=== PATIENT | female | born 1980 | race Caucasian/White ===

== ENCOUNTER → 2016-11-16 | Outpatient (CLI) | payer MEDICAID ==
--- NOTE | 2016-11-18 08:02 | XCELERA REPORT ---
[address] [address] Lower Extremity Arterial Evaluation Name: THOM TOVAR Age: 36 yrs Gender: Female : 1980 Patient Status: Outpatient Patient Location: Study Date: 11/16/2016 12:47 PM Procedure: A color flow and duplex scan of the lower extremity arteries was performed bilaterally with velocity and waveform anaylsis. Ankle brachial indicies performed. Reason For Study: PVD Ordering Physician: TERRY PHILLIPS Performed By: Xochilt Fisher Measurements and Calculations Right Left LEAD MACHINIST PSV 151.9 144.6 cm/sec Prox PFA PSV -100.7 -80.3 cm/sec Prox SFA PSV 94.8 -74.6 cm/sec Mid SFA PSV -120.2 -95.8 cm/sec Dist SFA PSV -109.7 -90.8 cm/sec Prox Pop A PSV 62.5 57.6 cm/sec Dist DOMINIC PSV 47.2 65.3 cm/sec Dist CHIEF INNOVATION OFFICER PSV 90.8 81.6 cm/sec Venkat Pedis PSV 41.8 39.7 cm/sec Right Side Arterial Evaluation Normal velocity, waveform and triphasic flow are present, from the Common Femoral artery to the infrageniculate vessels. The ankle-brachial index is 1.1. 0 % stenosis noted . Left Side Arterial Evaluation Normal velocity, waveform and triphasic flow are present, from the Common Femoral artery to the infrageniculate vessels. The ankle-brachial index is 1.07. 0 % stenosis noted . Interpretation Summary No hemodynamically significant lesions in the bilateral lower extremities, on duplex imaging, at rest. : TERRY PHILLIPS > Terry Phillips
== END ==
LOC: SP 12:43
PROVIDERS: ATTEND Surgery
DX: I73.9 Peripheral vascular disease, unspecified (principal)
CPT/HCPCS: 93925

== ENCOUNTER 2016-12-04 10:16 | Emergency (ER) | payer SELFPAY ==
[2016-12-04 10:25] VITALS: BP 114/63
--- NOTE | 2016-12-04 10:46 | ER Document Report ---
HPI - HPI Patient complains to provider of: sore throat and painful urination Pain Level: 3 Context: Patient is a 36-year-old female presents emergency Department complaining of a sore throat. Patient states that she has had strep exposure at home from 3 of her 6 kids. She states that it started initially as a burning scratchy feeling but now hurts with swallowing. Tolerating her own secretions. Tolerating by mouth without any difficulty. she admits to subjective fevers at home. Otherwise she denies any muffled speech, drooling, felt odor or drainage from her mouth. Patient also presents today complaining of painful urination. Patient states she has had burning when she urinates, urinary frequency, urgency for the past 4 days. Patient states that she had a history of UTI couple years ago but doesn 't get them frequently. Denies any flank pain, abdominal pain, nausea or vomiting. - REPRODUCTIVE Reproductive: DENIES: : - DERM Skin Color: Normal Past Medical History - Social History Smoking Status: Unknown if Ever Smoked Family History: Reviewed & Not Pertinent Patient has suicidal ideation: No Patient has homicidal ideation: No Pulmonary Medical History: Reports: Hx Asthma, Hx Bronchitis Endocrine Medical History: Reports: Hx Diabetes Mellitus Type 2 - Gestional. Denies: Hx Hyperthyroidism, Hx Hypothyroidism Renal/ Medical History: Denies: Hx Ovarian Cysts, Hx Peritoneal Dialysis, Hx Pelvic Inflammatory Disease Malignancy Medical History: Denies: Hx Breast Cancer, Hx Cervical Cancer, Hx Ovarian Cancer GI Medical History: Reports: Hx Gastroesophageal Reflux Disease. Denies: Hx Hiatal Hernia, Hx Ulcer Psychiatric Medical History: Reports: Hx Bipolar Disorder Denies: Hx Depression, Hx Post Traumatic Stress Disorder, Hx Schizophrenia Infectious Medical History: Denies: Hx HIV Past Surgical History: Reports: Hx Section, Hx Tubal Ligation - Immunizations Hx Diphtheria, Pertussis, Tetanus Vaccination: Yes - received during Vertical Provider Document - CONSTITUTIONAL Agree With Documented VS: Yes Exam Limitations: No Limitations General Appearance: WD/WN, No Apparent Distress - INFECTION CONTROL TRAVEL OUTSIDE OF THE [place] IN LAST 30 DAYS: No - HEENT HEENT: Atraumatic, Normocephalic, PERRLA, Pharyngeal Tenderness, Pharyngeal Erythema. negative: Pharyngeal Exudate, Tympanic Membrane Red, Tympanic Membrane Bulging Notes: No evidence of retropharyngeal or peritonsillar abscess. No evidence of respiratory distress, airway compromise - NECK Neck: Normal Inspection. negative: Lymphadenopathy-Left, Lymphadenopathy-Right - RESPIRATORY Respiratory: Breath Sounds Normal, No Respiratory Distress, Chest Non-Tender. negative: Rales, Rhonchi, Wheezing O2 Sat by Pulse Oximetry: 97 - CARDIOVASCULAR Cardiovascular: Regular Rate, Regular Rhythm, No Murmur. negative: Tachycardia Pulses: Normal: Radial - GI/ABDOMEN Gastrointestinal: Abdomen Soft, Abdomen Non-Tender, No Organomegaly, Normal Bowel Sounds - MUSCULOSKELETAL/EXTREMETIES Musculoskeletal/Extremeties: MAEW, FROM, Non-Tender, No Edema - NEURO Level of Consciousness: Awake, Alert, Appropriate Motor/Sensory: No Motor Deficit, No Sensory Deficit - DERM Integumentary: Warm, Dry, No Rash Course - Re-evaluation Re-evalutation: 12/04/16 11:06 Patient's 36-year-old female presents emergency Department with sore throat urinary complaint. Strep is negative. UA is clean. Given patient's complaint sent for culture. Discharged home and can follow-up with primary care as needed. - Vital Signs Vital signs: Temp Pulse Resp BP Pulse Ox 98.4 F 72 16 114/63 97 12/04/16 10:23 12/04/16 10:23 12/04/16 10:23 12/04/16 10:23 12/04/16 10:23 Discharge - Discharge Clinical Impression: Sore throat, Urinary frequency Condition: Good Disposition: HOME, SELF-CARE Instructions: Sore Throat ([facility]) Referrals: RAN MAGANA PA-C [Primary Care Provider] - Follow up as needed
[2016-12-04 11:14] LABS: AMORPHOUS SEDIMENT,URINE TRACE /HPF; APPEARANCE,URINE TURBID; BILIRUBIN,URINE NEGATIVE (NEGATIVE); GLUCOSE, URINE NEGATIVE (NEGATIVE); KETONES,URINE NEGATIVE (NEGATIVE); LEUKOCYTE ESTERASE,URINE NEGATIVE (NEGATIVE); NITRITE,URINE NEGATIVE (NEGATIVE); PROTEIN,URINE NEGATIVE (NEGATIVE); URINE SPECIFIC GRAVITY 1.011; UROBILINOGEN,URINE NEGATIVE mg/dL (<2.0)
== END 2016-12-04 12:05 | disposition home or self-care (01) ==
LOC: ER 10:16
DX: J02.9 Acute pharyngitis, unspecified (principal); R35.0 Frequency of micturition; R30.9 Painful micturition, unspecified; R50.9 Fever, unspecified
CPT/HCPCS: 81001; 81025; 87070; 87086; 87880; 99283

== ENCOUNTER 2018-10-17 20:44 | Emergency (ER) | payer MEDICAID | END 2018-10-17 21:35 | disposition left against medical advice (07) | LOC: ER 20:44 | DX: Z53.21 Procedure and treatment not carried out due to patient leaving prior to being seen by health care provider (principal); R50.9 Fever, unspecified; R11.10 Vomiting, unspecified; M79.10 Myalgia, unspecified site ==

== ENCOUNTER 2018-12-05 13:08 | Emergency (ER) | payer SELFPAY ==
--- NOTE | 2018-12-05 13:31 | ER Document Report ---
ED Medical Screen (RME) - General Chief Complaint: Vaginal Bleeding Stated Complaint: VAGINAL BLEED Time Seen by Provider: 12/05/18 13:26 Primary Care Provider: RAN MAGANA PA-C [Primary Care Provider] - Follow up as needed TRAVEL OUTSIDE OF THE [place] IN LAST 30 DAYS: No - HPI Notes: 12/05/18 13:30 Patient is a 38-year-old female with a history of mental health disorder who pr esents the emergency department complaining of heavier than normal vaginal bleeding over the past 3 menstrual cycles with "blood clots the size of golf balls." Patient states that she will have her typical cramping associated, but no focal pain. She is otherwise eating and drinking without difficulty. She is urinating normally and having normal bowel movements. Patient also has concern of a bump to her left axilla that she has noticed over the past 6 months without any acute change, redness, or discharge. Denies any headache, fever, neck pain, URI, sore throat, chest pain, palpitations, syncope, cough, shortness of breath, wheeze, dyspnea, abdominal pain, nausea/vomiting/diarrhea, urinary retention, dysuria, hematuria. I have treated and performed a rapid initial assessment of this patient. A comprehensive ED assessment and evaluation of the patient, analysis of test results and completion of medical decision making process will be conducted by additional ED providers. PHYSICAL EXAMINATION: GENERAL: Well-appearing, well-nourished and in no acute distress. A&Ox4. Answers questions appropriately. LUNGS: Breath sounds clear to auscultation bilaterally and equal. No wheezes rales or rhonchi. HEART: Regular rate and rhythm without murmurs, rubs, gallops. ABDOMEN: Soft, nondistended abdomen. No guarding, no rebound. Normal bowel sounds present. No CVA tenderness bilaterally. No focal tenderness Extremities: No cyanosis, clubbing, or edema b/l. NEUROLOGICAL: Normal speech, normal gait. PSYCH: Normal mood, normal affect. - Related Data Allergies/Adverse Reactions: latex [Latex] Allergy (Severe, Verified 12/05/18 13:09) RASH amoxicillin [Amoxicillin] Allergy (Verified 12/05/18 13:09) oxycodone HCl [From Percocet] Allergy (Verified 12/05/18 13:09) Hives Penicillins Allergy (Verified 12/05/18 13:09) Past Medical History Pulmonary Medical History: Reports: Hx Asthma, Hx Bronchitis Endocrine Medical History: Reports: Hx Diabetes Mellitus Type 2 - Gestional. Denies: Hx Hyperthyroidism, Hx Hypothyroidism Renal/ Medical History: Denies: Hx Ovarian Cysts, Hx Peritoneal Dialysis, Hx Pelvic Inflammatory Disease Malignancy Medical History: Denies: Hx Breast Cancer, Hx Cervical Cancer, Hx Ovarian Cancer GI Medical History: Reports: Hx Gastroesophageal Reflux Disease. Denies: Hx Hiatal Hernia, Hx Ulcer Psychiatric Medical History: Reports: Hx Bipolar Disorder Denies: Hx Depression, Hx Post Traumatic Stress Disorder, Hx Schizophrenia Infectious Medical History: Denies: Hx HIV Past Surgical History: Reports: Hx Section, Hx Tubal Ligation - Immunizations Hx Diphtheria, Pertussis, Tetanus Vaccination: Yes - received during Physical Exam - Vital signs Vitals: Temp Pulse Resp BP Pulse Ox 99 F 90 18 129/68 H 97 12/05/18 13:15 12/05/18 13:15 12/05/18 13:15 12/05/18 13:15 12/05/18 13:15 Course - Vital Signs Vital signs: Temp Pulse Resp BP Pulse Ox 99 F 90 18 129/68 H 97 12/05/18 13:15 12/05/18 13:15 12/05/18 13:15 12/05/18 13:15 12/05/18 13:15 Doctor's Discharge - Discharge Referrals: RAN MAGANA PA-C [Primary Care Provider] - Follow up as needed
[2018-12-05 14:03] LABS: ABSOLUTE BASOPHILS # (AUTO) 0.1 10^3/uL (0.0-0.2); ABSOLUTE EOSINOPHILS # (AUTO) 0.1 10^3/uL (0.0-0.6); ABSOLUTE LYMPHOCYTES (AUTO) 2.2 10^3/uL (0.5-4.7); ABSOLUTE MONOCYTES (AUTO) 0.5 10^3/uL (0.1-1.4); ABSOLUTE NEUT (AUTO) 4.5 10^3/uL (1.7-8.2); BASOPHILS % (AUTO) 0.9 % (0-2); EOSINOPHILS % (AUTO) 1.4 % (0-6); HEMATOCRIT 37.7 % (36.0-47.0); HEMOGLOBIN 13.2 g/dL (12.0-15.5); LYMPHOCYTES % (AUTO) 30.5 % (13-45); MEAN CORPUSCULAR HEMOGLOBIN 31.6 pg (27.0-33.4); MEAN CORPUSCULAR HGB CONC 34.9 g/dL (32.0-36.0); MEAN CORPUSCULAR VOLUME 90 fl (80-97); MONOCYTES % (AUTO) 6.5 % (3-13); PLATELET COUNT 276 10^3/uL (150-450); RED BLOOD COUNT 4.17 10^6/uL (3.72-5.28); RED CELL DISTRIBUTION WIDTH 13.2 % (11.5-14.0); SEGMENTED NEUTROPHILS % (AUTO) 60.7 % (42-78); TOTAL CELLS COUNTED % (AUTO) 100 %; WHITE BLOOD COUNT 7.4 10^3/uL (4.0-10.5)
--- NOTE | 2018-12-05 14:13 | ER Document Report ---
ED General - General Chief Complaint: Vaginal Bleeding Stated Complaint: VAGINAL BLEED Time Seen by Provider: 12/05/18 13:26 Primary Care Provider: RAN MAGANA PA-C [Primary Care Provider] - Follow up as needed Mode of Arrival: Ambulatory Information source: Parent TRAVEL OUTSIDE OF THE [place] IN LAST 30 DAYS: No - HPI Patient complains to provider of: Dysfunctional vaginal bleeding, possible abscess left axilla Onset: Other - 3 months Onset/Duration: Gradual Quality of pain: Cramping Severity: Severe Pain Level: 4 Associated symptoms: None Exacerbated by: Denies Relieved by: Denies Similar symptoms previously: No Recently seen / treated by doctor: No Notes: 38-year-old female presenting for abnormal vaginal bleeding during her menstrual cycle over the past 3 months. Having greater than normal amount of cramping. History of tubal ligation in the past. She used to be on Depo- Provera which seemed to control any of this. Has stopped taking it several months ago due to no funding. Does not have any lightheadedness, shortness of breath, dizziness, or near syncope. Denies chest pain. Also complaining of possible abscess in the left armpit which started about 6 months ago and really has not gotten any better by itself. No fevers or chills. - Related Data Allergies/Adverse Reactions: latex [Latex] Allergy (Severe, Verified 12/05/18 13:09) RASH amoxicillin [Amoxicillin] Allergy (Verified 12/05/18 13:09) oxycodone HCl [From Percocet] Allergy (Verified 12/05/18 13:09) Hives Penicillins Allergy (Verified 12/05/18 13:09) Past Medical History - General Information source: Patient - Social History Smoking Status: Current Every Day Smoker Family History: Reviewed & Not Pertinent Patient has suicidal ideation: No Patient has homicidal ideation: No Pulmonary Medical History: Reports: Hx Asthma, Hx Bronchitis Endocrine Medical History: Reports: Hx Diabetes Mellitus Type 2 - Gestional. Denies: Hx Hyperthyroidism, Hx Hypothyroidism Renal/ Medical History: Denies: Hx Ovarian Cysts, Hx Peritoneal Dialysis, Hx Pelvic Inflammatory Disease Malignancy Medical History: Denies: Hx Breast Cancer, Hx Cervical Cancer, Hx Ovarian Cancer GI Medical History: Reports: Hx Gastroesophageal Reflux Disease. Denies: Hx Hiatal Hernia, Hx Ulcer Psychiatric Medical History: Reports: Hx Bipolar Disorder Denies: Hx Depression, Hx Post Traumatic Stress Disorder, Hx Schizophrenia Infectious Medical History: Denies: Hx HIV Past Surgical History: Reports: Hx Section, Hx Tubal Ligation - Immunizations Hx Diphtheria, Pertussis, Tetanus Vaccination: Yes - received during Review of Systems - Review of Systems Notes: Constitutional: No fevers. No chills. EENT: No eye redness. No eye pain. No ear pain. No sore throat. Cardiovascular: No chest pain. No palpitations. Respiratory: No cough. No shortness of breath. No respiratory distress. Gastrointestinal: No abdominal pain. No nausea, vomiting, or diarrhea. Genitourinary: Atraumatic. Positive for heavy vaginal bleeding, positive for heavy pelvic cramping Musculoskeletal: Atraumatic. No swelling. No deformities. Skin: Positive for left axillary lump Lymphatic: No swollen lymph nodes. Neurologic: No headache. No syncope. Psychiatric: No suicidal or homicidal ideation. Physical Exam - Vital signs Vitals: Temp Pulse Resp BP Pulse Ox 99 F 90 18 129/68 H 97 12/05/18 13:15 12/05/18 13:15 12/05/18 13:15 12/05/18 13:15 12/05/18 13:15 - Notes Notes: General: Well-developed, well-nourished. In no acute distress. Non-toxic appearing. Cardiac: Well-perfused. Regular rate and rhythm. No murmurs, rubs, or gallops. Pulmonary: No respiratory distress. No cyanosis. Bilateral lung fiels are clear to auscultation. Abdominal: Non-distended. Non-rigid. Bowels sounds are present in all four quadrants. No guarding or rebound. HEENT: Head is atraumatic. Conjunctivae not reddened. No tearing. PERRL. EOMI. Orbits atraumatic. No periorbital swelling or erythema. Oropharynx is without e rythema, swelling, or exudates. Neck: Supple. No adenopathy. No meningismus. Dermatologic: Left axilla which is shaven. There is a small amount of induration in the upper medial aspect of the left axilla. Some associated redness and tenderness. The induration is not well delineated. This does not feel like a subcutaneous lymph node. Chest: Atraumatic. No chest wall tenderness to palpation. Musculoskeletal: Moves all extremities well. No range of motion deficits. no muscular or joint tenderness. No paraspinal muscle tenderness. no midline spinal tenderness or step-off. Genitourinary: Examination deferred Neurologic: No gross neurologic deficits. Psychiatric: Normal mood. Course - Re-evaluation Re-evalutation: 12/05/18 14:13 Agree with orders placed by the provider in triage. I suspect that the dysfunctional uterine bleeding could be a result of coming off of Depo-Provera. This will check a hemoglobin to make sure that she has a stable hemoglobin and hematocrit. Also check a ultrasound to make sure that there is not an anatomical reason for her to be bleeding like this. The axilla feels like a folliculitis that starting to get a little bit cellulitic. I do not think this is an axillary adenopathy. 12/05/18 15:32 Patient's lab work is back. H&H is stable. Pelvic ultrasound does not show any anatomical anomalies explaining the bleeding. I still think this is probably related to stopping Depo-Medrol. Indicated all of this to her and will refer her to gynecology clinic. Patient has large amount of leukocytes and trace bacteria in her urine specimen. She said she is having some frequency of urination but no dysuria. I will go ahead and put her on Bactrim which will cover both for the infected hair follicles in the left axilla as well as the UTI. I will refer her to [facility] preparation room worker but will also give her [facility] and they may be willing to do her Depo-Provera as well. - Vital Signs Vital signs: Temp Pulse Resp BP Pulse Ox 99 F 90 18 129/68 H 97 12/05/18 13:15 12/05/18 13:15 12/05/18 13:15 12/05/18 13:15 12/05/18 13:15 - Laboratory Result Diagrams: 12/05/18 13:50 Laboratory results interpreted by me: 12/05/18 13:50 Urine Protein 100 H Urine Blood LARGE H Ur Leukocyte Esterase LARGE H Discharge - Discharge Clinical Impression: Abnormal vaginal bleeding, Folliculitis UTI (urinary tract infection) Qualifiers: Urinary tract infection type: site unspecified Hematuria presence: without hematuria Qualified Code(s): N39.0 - Urinary tract infection, site not specified Condition: Good Instructions: Trimethoprim-Sulfa ([facility]), Folliculitis ([facility]), Urinary Tract Infection ([facility]) Additional Instructions: If your symptoms seem to be getting worse instead of better and you have not seen 1 of the referral doctors, you can return to the emergency department to be reassessed. Sure to take all prescribed medication for full duration. [facility] a local [facility] for people who typically do not have traditional health insurance plans. They may be able to assist you with getting her Depo-Provera shots. They can also recheck your urine in a couple of days to make sure that your infection is clearing up. They may also be able to help take care of the infection under left armpit. Prescriptions: Sulfamethoxazole/Trimethoprim [Bactrim Ds Tablet] 1 each PO BID #20 tablet Referrals: RAN MAGANA PA-C [Primary Care Provider] - Follow up as needed [facility] [Provider Group] - Follow up as needed AVEL NATION MD [ACTIVE STAFF] - Follow up as needed Print Language: Tajik
[2018-12-05 14:29] LABS: APPEARANCE,URINE CLOUDY; BILIRUBIN,URINE NEGATIVE (NEGATIVE); COLOR,URINE RED; GLUCOSE, URINE NEGATIVE (NEGATIVE); KETONES,URINE NEGATIVE (NEGATIVE); LEUKOCYTE ESTERASE,URINE LARGE (NEGATIVE); NITRITE,URINE NEGATIVE (NEGATIVE); PROTEIN,URINE 100 mg/dL (NEGATIVE); URINE SPECIFIC GRAVITY 1.009; UROBILINOGEN,URINE NEGATIVE mg/dL (<2.0)
--- NOTE | 2018-12-05 15:04 | RADIOLOGY REPORT (SQ) ---
EXAM DESCRIPTION: U/S NON OB PEL TV W/DOPPLER COMPLETED DATE/TIME: 12/05/2018 2:45 pm REASON FOR STUDY: heavy bleeding COMPARISON: None. TECHNIQUE: Dynamic and static grayscale images acquired of the pelvis via transvaginal approach and recorded on PACS. Additional selected color Doppler and spectral images recorded. LIMITATIONS: None. FINDINGS: UTERUS: Unremarkable in contour measuring 8.5 x 5.2 x 6.3 cm. Heterogeneous echotexture w ithout discrete lesion. ENDOMETRIAL STRIPE: No focal or generalized thickening. No mass. Endometrial stripe measures 4 mm. CERVIX: Single nabothian cyst. Cervix measures 3.5 cm. RIGHT OVARY AND DOPPLER: Right ovary measures 2.0 x 1.8 x 3.5 cm. Doppler flow demonstrates normal a rterial and venous waveforms. LEFT OVARY AND DOPPLER: Left ovary measures 3.1 x 1.5 x 1.7 cm. Doppler flow demonstrates normal mandie ous and arterial waveforms. FREE FLUID: None noted. OTHER: No other significant finding. IMPRESSION: Unremarkable ovaries bilaterally. Heterogeneous uterine echotexture without discrete fibroids appreciated. TECHNICAL DOCUMENTATION: JOB ID: [id number] [place]- All Rights Reserved Rev Reading location - IP/workstation name: [email or web address]
[2018-12-05 16:20] VITALS: BP 127/69
== END 2018-12-05 16:19 | disposition home or self-care (01) ==
LOC: ER 13:08
DX: N93.8 Other specified abnormal uterine and vaginal bleeding (principal); N39.0 Urinary tract infection, site not specified; L73.9 Follicular disorder, unspecified; R25.2 Cramp and spasm; F17.200 Nicotine dependence, unspecified, uncomplicated; Z98.51 Tubal ligation status; J45.909 Unspecified asthma, uncomplicated; Z91.040 Latex allergy status; Z88.0 Allergy status to penicillin; Z88.5 Allergy status to narcotic agent
CPT/HCPCS: 36415; 76830; 81001; 81025; 85025; 87086; 93976; 99284

== ENCOUNTER 2019-03-26 13:04 | Emergency (ER) | payer SELFPAY ==
--- NOTE | 2019-03-26 13:53 | ER Document Report ---
ED ENT - General Chief Complaint: Sore Throat Stated Complaint: THROAT PAIN Time Seen by Provider: 03/26/19 13:48 Primary Care Provider: RAN MAGANA PA-C [Primary Care Provider] - Follow up in 3-5 days Mode of Arrival: Ambulatory Information source: Patient Notes: 38-year-old female presented to ED for complaint of sore throat x2 days. She states she has been taken Tylenol and Motrin with no relief. She states it started on her right side and now her whole throat hurts. Patient is alert oriented respirations regular and unlabored speaking in full sentences walks with a even steady gait. She states she is not having any difficulty swallowing. TRAVEL OUTSIDE OF THE [place] IN LAST 30 DAYS: No - HPI Patient complains to provider of: Throat problem Onset: Other - 2 days Onset/Duration: Gradual Quality of pain: Sharp Severity: Moderate Pain Level: 4 Context: Recent Illness Location of pain: Throat Associated symptoms: Sore throat Similar symptoms previously: Yes Recently seen / treated by doctor: No - Related Data Allergies/Adverse Reactions: latex [Latex] Allergy (Severe, Verified 03/26/19 13:19) RASH amoxicillin [Amoxicillin] Allergy (Verified 03/26/19 13:19) oxycodone HCl [From Percocet] Allergy (Verified 03/26/19 13:19) Hives Penicillins Allergy (Verified 03/26/19 13:19) Past Medical History - General Information source: Patient - Social History Smoking Status: Current Every Day Smoker Cigarette use (# per day): Yes - 5 cigarettes a day Chew tobacco use (# tins/day): No Smoking Education Provided: Yes - 4 minutes Frequency of alcohol use: None Drug Abuse: Marijuana Occupation: Paperwork Lives with: Family Family History: Reviewed & Not Pertinent Patient has suicidal ideation: No Patient has homicidal ideation: No - Past Medical History Cardiac Medical History: Reports: None Pulmonary Medical History: Reports: Hx Asthma, Hx Bronchitis EENT Medical History: Reports: None Neurological Medical History: Reports: None Endocrine Medical History: Reports: Hx Diabetes Mellitus Type 2 - Gestional Renal/ Medical History: Reports: None Malignancy Medical History: Reports: None GI Medical History: Reports: Hx Gastroesophageal Reflux Disease Musculoskeletal Medical History: Reports None Skin Medical History: Reports None Psychiatric Medical History: Reports: Hx Anxiety, Hx Bipolar Disorder, Hx Post Traumatic Stress Disorder Traumatic Medical History: Reports: None Infectious Medical History: Reports: None Past Surgical History: Reports: Hx Section, Hx Tubal Ligation - Immunizations Hx Diphtheria, Pertussis, Tetanus Vaccination: Yes - received during Review of Systems - Review of Systems Constitutional: No symptoms reported EENT: Throat pain Cardiovascular: No symptoms reported Respiratory: No symptoms reported Gastrointestinal: No symptoms reported Genitourinary: No symptoms reported Female Genitourinary: No symptoms reported Musculoskeletal: No symptoms reported Skin: No symptoms reported Hematologic/Lymphatic: No symptoms reported Neurological/Psychological: No symptoms reported -: Yes All other systems reviewed and negative Physical Exam - Vital signs Vitals: Temp Pulse Resp BP Pulse Ox 98.4 F 93 17 147/77 H 97 03/26/19 13:25 03/26/19 13:25 03/26/19 13:25 03/26/19 13:25 03/26/19 13:25 Interpretation: Normal - General General appearance: Appears well, Alert - HEENT Head: Normocephalic, Atraumatic Eyes: Normal Pupils: PERRL Ears: Normal External canal: Normal Sinus: Normal Nasal: Purulent discharge, Swelling Mouth/Lips: Normal, Other Pharynx: Erythema, Post nasal drainage. No: Exudate, Peritonsillar abscess, Retropharyngeal abscess, Tonsillar hypertrophy, Uvular edema, Potential airway comprom. Neck: Normal - Respiratory Respiratory status: No respiratory distress Chest status: Nontender Breath sounds: Normal Chest palpation: Normal - Cardiovascular Rhythm: Regular Heart sounds: Normal auscultation Murmur: No - Abdominal Inspection: Normal Distension: No distension Bowel sounds: Normal Tenderness: Nontender Organomegaly: No organomegaly - Back Back: Normal, Nontender - Extremities General upper extremity: Normal inspection, Nontender, Normal color, Normal ROM, Normal temperature General lower extremity: Normal inspection, Nontender, Normal color, Normal ROM, Normal temperature, Normal weight bearing. No: Stefano's sign - Neurological Neuro grossly intact: Yes Cognition: Normal Orientation: AAOx4 Mandy Coma Scale Eye Opening: Spontaneous Mandy Coma Scale Verbal: Oriented Mandy Coma Scale Motor: Obeys Commands Mandy Coma Scale Total: 15 Speech: Normal Motor strength normal: LUE, RUE, LLE, RLE Sensory: Normal - Psychological Associated symptoms: Normal affect, Normal mood - Skin Skin Temperature: Warm Skin Moisture: Dry Skin Color: Normal Course - Re-evaluation Re-evalutation: 03/26/19 21:23 After performing a Medical Screening Examination, I estimate there is LOW risk for ACUTE CORONARY SYNDROME, RESPIRATORY FAILURE, SEPSIS OR MENINGITIS, thus I consider the discharge disposition reasonable. I have reevaluated this patient multiple times and no significant life threatening changes are noted. The patient and I have discussed the diagnosis and risks, and we agree with discharging home with close follow-up. We also discussed returning to the Emergency Department immediately if new or worsening symptoms occur. We have discussed the symptoms which are most concerning (e.g., changing or worsening pain, trouble swallowing or breathing, neck stiffness, fever) that necessitate immediate return. - Vital Signs Vital signs: Temp Pulse Resp BP Pulse Ox 98.9 F 78 18 126/72 H 99 03/26/19 16:02 03/26/19 16:02 03/26/19 16:02 03/26/19 16:02 03/26/19 16:02 Discharge - Discharge Clinical Impression: Sore throat (viral) URI (upper respiratory infection) Qualifiers: URI type: unspecified viral URI Qualified Code(s): J06.9 - Acute upper respiratory infection, unspecified Condition: Stable Disposition: HOME, SELF-CARE Additional Instructions: UPPER RESPIRATORY ILLNESS: You have a viral infection of the respiratory passages -- a "cold." This common infection causes nasal congestion, drainage, and often sore throat and cough. It is highly contagious. The disease usually lasts about 10 to 14 days. There is no "cure" for the viral infection -- it must run its course. If there is a complication, such as bacterial infection in the nose, sinuses, middle ear, or bronchial tubes, antibiotics may be required. The antibiotics won't affect the virus. Drink plenty of fluids. A humidifier may help. An expectorant medication or decongestant may make you more comfortable. Use acetaminophen or ibuprofen for fever or aches. See the doctor if fever persists over two days, if there is any significant worsening of your symptoms, or if you simply fail to improve as expected. SORE THROAT: Sore throats may be caused by viruses, bacteria, or fungi. Most are due to a virus, and must get better on their own. Bacterial sore throats, particularly those due to "strep," need treatment with antibiotics. If an antibiotic is prescribed, be sure to take the medication for a full 10 days. Failure to take the antibiotic can result in complications such as rheumatic fever. Sometimes, an injection of antibiotics is given instead of pills or liquid. This single "shot" is equal in effectiveness to the oral medication. To relieve symptoms, take acetaminophen for pain. Sip clear liquids frequently, or eat popsicles or ice chips. Anesthetic sprays or lozenges may help. Make sure the air in the room is not too dry. Avoid using decongestants or antihistamines. Call the doctor if there is no improvement in two days, or if you have difficulty breathing, increasing throat pain, high fever, rash, or frequent vomiting. USE OF ACETAMINOPHEN (Tylenol): Acetaminophen may be taken for pain relief or fever control. It's much safer than aspirin, offering a wider range of "safe" dosages. It is safe during . Some brand names are Tylenol, Panadol, Datril, Anacin 3, Tempra, and Liquiprin. Acetaminophen can be repeated every four hours. The following are maximum recommended dosages: >89 pounds or adults 650 mg to 900 mg Acetaminophen can be repeated every four hours. Maximum dose not to exceed 4000 mg a day. SMOKING: If you smoke, you should stop smoking. The tar and chemicals in cigarette smoke are harmful. Smoking has been shown to cause: emphysema chronic bronchitis lung cancer mouth and throat cancer stomach and pancreas cancer premature aging defects In addition, smoking increases ear and lung infections in children of smokers. FOLLOW-UP CARE: If you have been referred to a physician for follow-up care, call the physicians office for an appointment as you were instructed or within the next two days. If you experience worsening or a significant change in your symptoms, notify the physician immediately or return to the Emergency Department at any time for re-evaluation. Forms: Elevated Blood Pressure, Smoking Cessation Education, Return to Work Referrals: RAN MAGANA PA-C [Primary Care Provider] - Follow up in 3-5 days
[2019-03-26 16:03] VITALS: BP 126/72
== END 2019-03-26 16:04 | disposition home or self-care (01) ==
LOC: ER 13:04
DX: J02.9 Acute pharyngitis, unspecified (principal); J06.9 Acute upper respiratory infection, unspecified; F17.210 Nicotine dependence, cigarettes, uncomplicated; Z91.040 Latex allergy status; Z88.0 Allergy status to penicillin; Z88.6 Allergy status to analgesic agent; Z98.51 Tubal ligation status
CPT/HCPCS: 87070; 87880; 99283; 99406

== ENCOUNTER 2019-05-16 19:14 | Emergency (ER) | payer SELFPAY ==
--- NOTE | 2019-05-16 20:07 | ER Document Report ---
ED Medical Screen (RME) - General Chief Complaint: Dizziness Stated Complaint: CHEST PAIN Time Seen by Provider: 05/16/19 20:04 Primary Care Provider: RAN MAGANA PA-C [Primary Care Provider] - Follow up as needed Mode of Arrival: Ambulatory Information source: Patient Notes: 29-year-old female presenting to ED for complaint of various complaints. She states yesterday around noon time she was extremely fatigued diaphoretic shaking she thought that she ate some food she would feel much better but after she ate she was still fatigued and developed a headache. So she thought she was just tired she went home went to bed woke up this morning she was fine by noon she was shaky fatigue and having trouble keeping her eyes open. She states she has been thirsty more often and frequently urinating. Her Accu-Chek is 104 in the pit area. I have greeted and performed a rapid initial assessment of this patient. A comprehensive ED assessment and evaluation of the patient, analysis of test results and completion of medical decision making process will be conducted by an additional ED providers. TRAVEL OUTSIDE OF THE [place] IN LAST 30 DAYS: No - Related Data Allergies/Adverse Reactions: latex [Latex] Allergy (Severe, Verified 03/26/19 13:19) RASH amoxicillin [Amoxicillin] Allergy (Verified 03/26/19 13:19) oxycodone HCl [From Percocet] Allergy (Verified 03/26/19 13:19) Hives Penicillins Allergy (Verified 03/26/19 13:19) Past Medical History Pulmonary Medical History: Reports: Hx Asthma, Hx Bronchitis Endocrine Medical History: Reports: Hx Diabetes Mellitus Type 2 - Gestional. Denies: Hx Hyperthyroidism, Hx Hypothyroidism Renal/ Medical History: Denies: Hx Ovarian Cysts, Hx Peritoneal Dialysis, Hx Pelvic Inflammatory Disease Malignancy Medical History: Denies: Hx Breast Cancer, Hx Cervical Cancer, Hx Ovarian Cancer GI Medical History: Reports: Hx Gastroesophageal Reflux Disease. Denies: Hx Hiatal Hernia, Hx Ulcer Psychiatric Medical History: Reports: Hx Anxiety, Hx Bipolar Disorder, Hx Post Traumatic Stress Disorder Denies: Hx Depression, Hx Schizophrenia Infectious Medical History: Denies: Hx HIV Past Surgical History: Reports: Hx Section, Hx Tubal Ligation - Immunizations Hx Diphtheria, Pertussis, Tetanus Vaccination: Yes - received during Physical Exam - Vital signs Vitals: Temp Pulse Resp BP Pulse Ox 99.0 F 96 18 127/74 H 93 05/16/19 19:32 05/16/19 19:32 05/16/19 19:32 05/16/19 19:32 05/16/19 19:32 Course - Vital Signs Vital signs: Temp Pulse Resp BP Pulse Ox 99.0 F 96 18 127/74 H 93 05/16/19 19:32 05/16/19 19:32 05/16/19 19:32 05/16/19 19:32 05/16/19 19:32 Doctor's Discharge - Discharge Referrals: RAN MAGANA PA-C [Primary Care Provider] - Follow up as needed
[2019-05-16 20:39] LABS: APPEARANCE,URINE SLIGHTLY-CLOUDY; BILIRUBIN,URINE NEGATIVE (NEGATIVE); COLOR,URINE YELLOW; GLUCOSE, URINE NEGATIVE (NEGATIVE); KETONES,URINE NEGATIVE (NEGATIVE); LEUKOCYTE ESTERASE,URINE NEGATIVE (NEGATIVE); NITRITE,URINE NEGATIVE (NEGATIVE); PROTEIN,URINE NEGATIVE (NEGATIVE); URINE SPECIFIC GRAVITY 1.012
[2019-05-16 20:50] LABS: ADD MANUAL MICROSCOPIC YES
[2019-05-16 20:52] LABS: URINE AMPHETAMINES SCREEN NEGATIVE; URINE BARBITURATES SCREEN NEGATIVE; URINE BENZODIAZEPINES SCREEN NEGATIVE; URINE COCAINE SCREEN NEGATIVE; URINE MARIJUANA (THC) SCREEN UNCONFIRMED POSITIVE; URINE METHADONE SCREEN NEGATIVE; URINE PHENCYCLIDINE SCREEN NEGATIVE
--- NOTE | 2019-05-16 20:53 | RADIOLOGY REPORT (SQ) ---
EXAM DESCRIPTION: CLINICAL HISTORY: 39 years Female, Diaphoresis shaky fatigue COMPARISON: 03/03/2015. FINDINGS: Cardiomediastinal silhouette is not enlarged. Suspected minimal prominence of the azygos vein. No suspicious lung pleural bone abnormalities. IMPRESSION: No acute findings.
[2019-05-16 20:54] LABS: BACTERIA,URINE TRACE /HPF
[2019-05-16 21:17] LABS: ABSOLUTE BASOPHILS # (AUTO) 0.1 10^3/uL (0.0-0.2); ABSOLUTE EOSINOPHILS # (AUTO) 0.1 10^3/uL (0.0-0.6); ABSOLUTE LYMPHOCYTES (AUTO) 3.1 10^3/uL (0.5-4.7); ABSOLUTE MONOCYTES (AUTO) 0.6 10^3/uL (0.1-1.4); ABSOLUTE NEUT (AUTO) 6.3 10^3/uL (1.7-8.2); EOSINOPHILS % (AUTO) 1.3 % (0-6); HEMATOCRIT 40.3 % (36.0-47.0); HEMOGLOBIN 13.8 g/dL (12.0-15.5); LYMPHOCYTES % (AUTO) 30.3 % (13-45); MEAN CORPUSCULAR HEMOGLOBIN 29.9 pg (27.0-33.4); MEAN CORPUSCULAR HGB CONC 34.2 g/dL (32.0-36.0); MEAN CORPUSCULAR VOLUME 88 fl (80-97); MONOCYTES % (AUTO) 6.3 % (3-13); PLATELET COUNT 328 10^3/uL (150-450); RED CELL DISTRIBUTION WIDTH 13.3 % (11.5-14.0); SEGMENTED NEUTROPHILS % (AUTO) 61.1 % (42-78); TOTAL CELLS COUNTED % (AUTO) 100 %; WHITE BLOOD COUNT 10.3 10^3/uL (4.0-10.5)
[2019-05-16 21:36] LABS: ALBUMIN 4.6 g/dL (3.5-5.0); ALKALINE PHOSPHATASE 89 U/L (38-126); ANION GAP 9 (5-19); ASPARTATE AMINO TRANSFERASE 32 U/L (14-36); BILIRUBIN,DIRECT 0.1 mg/dL (0.0-0.4); BILIRUBIN,TOTAL 0.4 mg/dL (0.2-1.3); BLOOD UREA NITROGEN 10 mg/dL (7-20); CALCIUM 9.6 mg/dL (8.4-10.2); CARBON DIOXIDE 28 mmol/L (22-30); CHLORIDE 103 mmol/L (98-107); CREATINE KINASE 76 U/L (30-135); GLUCOSE 97 mg/dL (75-110); POTASSIUM 4.1 mmol/L (3.6-5.0); TOTAL PROTEIN 7.7 g/dL (6.3-8.2)
[2019-05-16 21:59] LABS: CREATINE KINASE MB < 0.22 ng/mL (<4.55); TROPONIN I < 0.012 ng/mL
--- NOTE | 2019-05-17 00:19 | ER Document Report ---
ED General - General Chief Complaint: Dizziness Stated Complaint: CHEST PAIN Time Seen by Provider: 05/16/19 20:04 Primary Care Provider: RAN MAGANA PA-C [Primary Care Provider] - Follow up as needed Mode of Arrival: Ambulatory Information source: Patient Notes: HPI/RME: 29-year-old female presenting to ED for complaint of various complaints. She states yesterday around noon time she was extremely fatigued diaphoretic shaking she thought that she ate some food she would feel much better but after she ate she was still fatigued and developed a headache. So she thought she was just tired she went home went to bed woke up this morning she was fine by noon she was shaky fatigue and having trouble keeping her eyes open. She states she has been thirsty more often and frequently urinating. Her Accu-Chek is 104 in the pit area. TRAVEL OUTSIDE OF THE [place] IN LAST 30 DAYS: No - Related Data Allergies/Adverse Reactions: latex [Latex] Allergy (Severe, Verified 03/26/19 13:19) RASH amoxicillin [Amoxicillin] Allergy (Verified 03/26/19 13:19) oxycodone HCl [From Percocet] Allergy (Verified 03/26/19 13:19) Hives Penicillins Allergy (Verified 03/26/19 13:19) Past Medical History - General Information source: Patient - Social History Smoking Status: Current Every Day Smoker Frequency of alcohol use: Occasional Drug Abuse: None Family History: Reviewed & Not Pertinent Patient has suicidal ideation: No Patient has homicidal ideation: No Pulmonary Medical History: Reports: Hx Asthma, Hx Bronchitis Endocrine Medical History: Reports: Hx Diabetes Mellitus Type 2 - Gestional. Denies: Hx Hyperthyroidism, Hx Hypothyroidism Renal/ Medical History: Denies: Hx Ovarian Cysts, Hx Peritoneal Dialysis, Hx Pelvic Inflammatory Disease Malignancy Medical History: Denies: Hx Breast Cancer, Hx Cervical Cancer, Hx Ovarian Cancer GI Medical History: Reports: Hx Gastroesophageal Reflux Disease. Denies: Hx Hiatal Hernia, Hx Ulcer Psychiatric Medical History: Reports: Hx Anxiety, Hx Bipolar Disorder, Hx Post Traumatic Stress Disorder Denies: Hx Depression, Hx Schizophrenia Infectious Medical History: Denies: Hx HIV Past Surgical History: Reports: Hx Section, Hx Tubal Ligation - Immunizations Hx Diphtheria, Pertussis, Tetanus Vaccination: Yes - received during Review of Systems - Review of Systems Constitutional: No symptoms reported EENT: No symptoms reported Cardiovascular: Chest pain Respiratory: No symptoms reported Gastrointestinal: No symptoms reported Genitourinary: No symptoms reported Female Genitourinary: No symptoms reported Musculoskeletal: No symptoms reported Skin: No symptoms reported Hematologic/Lymphatic: No symptoms reported Neurological/Psychological: No symptoms reported Physical Exam - Vital signs Vitals: Temp Pulse Resp BP Pulse Ox 99.0 F 96 18 127/74 H 93 05/16/19 19:32 05/16/19 19:32 05/16/19 19:32 05/16/19 19:32 05/16/19 19:32 - Notes Notes: PHYSICAL EXAMINATION: GENERAL: Well-appearing, well-nourished and in no acute distress. HEAD: Atraumatic, normocephalic. EYES: Pupils equal round and reactive to light, extraocular movements intact, conjunctiva are normal. ENT: Nares patent, oropharynx clear without exudates. Moist mucous membranes. NECK: Normal range of motion, supple without lymphadenopathy LUNGS: Breath sounds clear to auscultation bilaterally and equal. No wheezes rales or rhonchi. HEART: Regular rate and rhythm without murmurs ABDOMEN: Soft, nontender, nondistended abdomen. No guarding, no rebound. No masses appreciated. Female : deferred Musculoskeletal: Normal range of motion, no pitting or edema. No cyanosis. NEUROLOGICAL: Cranial nerves grossly intact. Normal speech, normal gait. Normal sensory, motor exams PSYCH: Normal mood, normal affect. SKIN: Warm, Dry, normal turgor, no rashes or lesions noted. Course - Re-evaluation Re-evalutation: Work-up today was unremarkable. Patient has not had any episodes of chest pain here in the emergency department today her EKG shows a sinus rhythm, normal axis, no ST segment elevations or depressions to suggest ischemia. Troponin was negative. Blood sugar was also normal here in the department. I encouraged her to have close follow-up with her primary care provider. Strict ED return precautions were discussed, patient verbalized understanding and agreement with this plan. - Vital Signs Vital signs: Temp Pulse Resp BP Pulse Ox 98.4 F 84 16 122/63 97 05/17/19 00:46 05/17/19 00:46 05/16/19 22:06 05/17/19 00:46 09/13/19 00:46 - Laboratory Result Diagrams: 05/16/19 21:05 05/16/19 21:05 Laboratory results interpreted by me: 05/16/19 19:45 Urine Blood SMALL H Urine Urobilinogen 4.0 H - Diagnostic Test Radiology reviewed: Image reviewed, Reports reviewed - EKG Interpretation by Me EKG shows normal: Sinus rhythm Rate: Normal Discharge - Discharge Clinical Impression: Dizziness Chest pain Qualifiers: Chest pain type: unspecified Qualified Code(s): R07.9 - Chest pain, unspecified Condition: Stable Disposition: HOME, SELF-CARE Additional Instructions: Your work-up here in the emergency department was normal today. I would advise you follow-up with your primary care provider to further discuss your symptoms of dizziness and chest pain. The cardiac work-up does not look like you are having any type of cardiac events. I do think that you need to eat more regularly, is not good to skip meals. Please try taking omeprazole for your acid reflux as this may help. Start with taking 1 tablet daily and then changed to twice daily if need be. Make sure you let your primary care provider note that we made this recommendation as the Zantac has no longer help to. Forms: Return to School Referrals: RAN MAGANA PA-C [Primary Care Provider] - Follow up as needed
[2019-05-17 00:49] VITALS: BP 122/63
--- NOTE | 2019-05-17 08:48 | EKG REPORT ---
SEVERITY:- NORMAL ECG - SINUS RHYTHM : Confirmed by: Chloe Burden MD 17-May-2019 08:47:52
== END 2019-05-17 00:49 | disposition home or self-care (01) ==
LOC: ER 19:14
DX: R42 Dizziness and giddiness (principal); R07.9 Chest pain, unspecified; R51 Headache; F17.200 Nicotine dependence, unspecified, uncomplicated; Z91.040 Latex allergy status; Z88.0 Allergy status to penicillin; Z88.6 Allergy status to analgesic agent; Z98.51 Tubal ligation status
CPT/HCPCS: 36415; 71046; 80053; 80307; 81001; 82550; 82553; 82962; 83690; 84484; 84703; 85025; 93005; 93010; 99284

== ENCOUNTER 2020-01-11 15:33 | Emergency (ER) | payer MEDICAID ==
[2020-01-11 15:45] VITALS: BP 133/74
[2020-01-11] MEDS ORDERED: RINGERS SOLUTION,LACTATED 1,000 ML IV ONE (16:38)
[2020-01-11] MEDS ORDERED: ACETAMINOPHEN 325 MG TABLET PO ONE (16:40)
--- NOTE | 2020-01-11 16:40 | ER Document Report ---
ED GI/ - General Chief Complaint: Abdominal Pain Stated Complaint: ABDOMINAL PAIN Time Seen by Provider: 01/11/20 16:19 Primary Care Provider: RAN MAGANA PA-C [Primary Care Provider] - Follow up as needed Mode of Arrival: Ambulatory Information source: Patient Notes: 39-year-old female past medical history significant for bipolar, PTSD presents to the emergency room complaining with intermittent left lower quadrant pain for the past 6 weeks. States she was seen by her primary care physician through telehealth 6 weeks ago and prescribed antibiotics for UTI for a week. States pain persisted for another week she called her primary care physician back they prescribed her Flagyl and Cipro for presumptive diverticulitis. Finished those meds 2 days ago. States the pain is gotten progressively worse over the past 2 days. Now complains it as a constant aching sensation in her left lower quadrant. Complains of nausea but no vomiting, no fevers, no urinary symptoms. Not currently taking any medications for her pain. Patient states she supposed be on Depo-Provera for control states she had a last shot in September has not had one since due to COVID-19. So she is currently past due for her Depo- Provera shot. TRAVEL OUTSIDE OF THE [place] IN LAST 30 DAYS: No - Related Data Allergies/Adverse Reactions: latex [Latex] Allergy (Severe, Verified 03/26/19 13:19) RASH amoxicillin [Amoxicillin] Allergy (Verified 03/26/19 13:19) oxycodone HCl [From Percocet] Allergy (Verified 03/26/19 13:19) Hives Penicillins Allergy (Verified 03/26/19 13:19) Past Medical History - General Information source: Patient - Social History Smoking Status: Current Every Day Smoker Frequency of alcohol use: Social Drug Abuse: Marijuana Lives with: Family Family History: Reviewed & Not Pertinent Patient has homicidal ideation: No Pulmonary Medical History: Reports: Hx Asthma, Hx Bronchitis Endocrine Medical History: Reports: Hx Diabetes Mellitus Type 2 - Gestional. Denies: Hx Hyperthyroidism, Hx Hypothyroidism Renal/ Medical History: Denies: Hx Ovarian Cysts, Hx Peritoneal Dialysis, Hx Pelvic Inflammatory Disease Malignancy Medical History: Denies: Hx Breast Cancer, Hx Cervical Cancer, Hx Ovarian Cancer GI Medical History: Reports: Hx Gastroesophageal Reflux Disease. Denies: Hx Hiatal Hernia, Hx Ulcer Psychiatric Medical History: Reports: Hx Anxiety, Hx Bipolar Disorder, Hx Post Traumatic Stress Disorder Denies: Hx Depression, Hx Schizophrenia Infectious Medical History: Denies: Hx HIV Past Surgical History: Reports: Hx Section, Hx Tubal Ligation - Immunizations Hx Diphtheria, Pertussis, Tetanus Vaccination: Yes - received during Review of Systems - Review of Systems Constitutional: No symptoms reported Cardiovascular: No symptoms reported Respiratory: No symptoms reported Gastrointestinal: Abdominal pain, Nausea. denies: Vomiting, Constipation Genitourinary: denies: Dysuria, Frequency, Flank pain, Urgency Female Genitourinary: No symptoms reported Musculoskeletal: No symptoms reported Skin: No symptoms reported -: Yes All other systems reviewed and negative Physical Exam - Vital signs Vitals: Temp 98.1 F 01/11/20 15:34 - General General appearance: Appears well, Alert In distress: Mild - HEENT Head: Normocephalic, Atraumatic Eyes: Normal Pupils: PERRL - Respiratory Respiratory status: No respiratory distress Chest status: Nontender Breath sounds: Normal Chest palpation: Normal - Cardiovascular Rhythm: Regular Heart sounds: Normal auscultation Murmur: No - Abdominal Inspection: Normal Distension: No distension Bowel sounds: Normal Tenderness: Tender - Tenderness on palpation to the left lower quadrant. No guarding, no rebound. No: Guarding, Rebound Organomegaly: No organomegaly - Back Back: Normal, Nontender. No: CVA tenderness - Neurological Neuro grossly intact: Yes Cognition: Normal Orientation: AAOx4 [place] Coma Scale Eye Opening: Spontaneous Mandy Coma Scale Verbal: Oriented Mandy Coma Scale Motor: Obeys Commands [place] Coma Scale Total: 15 Speech: Normal Motor strength normal: LUE, RUE, LLE, RLE Sensory: Normal - Skin Skin Temperature: Warm Skin Moisture: Dry Skin Color: Normal Course - Re-evaluation Re-evalutation: 01/11/20 19:31 Patient is resting she is afebrile, she is nontoxic-appearing, reviewed lab and CAT scan results with patient. Minimal relief in pain. Will get pelvic ultrasound, IV Toradol, reevaluate. 01/11/20 21:27 Patient is resting comfortably she is pain-free on exam. Reviewed all test results with patient. She was counseled that she can take Tylenol and or Motrin for pain. She is to follow-up outpatient with her primary care physician. She was given strict return to emergency room guidelines. All questions were answered. Patient verbalized understanding and agrees with plan of care. - Vital Signs Vital signs: Temp Pulse Resp BP Pulse Ox 98.1 F 91 18 133/74 H 96 01/11/20 15:43 01/11/20 15:43 01/11/20 15:43 01/11/20 15:43 01/11/20 15:43 - Laboratory Result Diagrams: 01/11/20 17:10 01/11/20 17:10 Laboratory results interpreted by me: 01/11/20 17:10 Urine Protein 100 H Urine Blood MODERATE H Ur Leukocyte Esterase TRACE H - Diagnostic Test Radiology reviewed: Reports reviewed Discharge - Discharge Clinical Impression: Right kidney stone, Right ovarian cyst Condition: Stable Disposition: HOME, SELF-CARE Instructions: Kidney Stone ([facility]), Ovarian Cyst ([facility]) Additional Instructions: Can continue with Tylenol and or Motrin as needed for pain. Recheck with your primary care physician next week. Return for any new or worsening symptoms. Referrals: RAN MAGANA PA-C [Primary Care Provider] - Follow up as needed
[2020-01-11 17:26] LABS: ABSOLUTE BASOPHILS # (AUTO) 0.1 10^3/uL (0.0-0.2); ABSOLUTE EOSINOPHILS # (AUTO) 0.1 10^3/uL (0.0-0.6); ABSOLUTE MONOCYTES (AUTO) 0.7 10^3/uL (0.1-1.4); ABSOLUTE NEUT (AUTO) 6.7 10^3/uL (1.7-8.2); EOSINOPHILS % (AUTO) 0.8 % (0-6); HEMATOCRIT 41.6 % (36.0-47.0); HEMOGLOBIN 14.7 g/dL (12.0-15.5); LYMPHOCYTES % (AUTO) 28.1 % (13-45); MEAN CORPUSCULAR HEMOGLOBIN 31.2 pg (27.0-33.4); MEAN CORPUSCULAR HGB CONC 35.3 g/dL (32.0-36.0); MEAN CORPUSCULAR VOLUME 88 fl (80-97); MONOCYTES % (AUTO) 6.5 % (3-13); PLATELET COUNT 303 10^3/uL (150-450); RED BLOOD COUNT 4.72 10^6/uL (3.72-5.28); RED CELL DISTRIBUTION WIDTH 13.9 % (11.5-14.0); SEGMENTED NEUTROPHILS % (AUTO) 63.6 % (42-78); TOTAL CELLS COUNTED % (AUTO) 100 %; WHITE BLOOD COUNT 10.5 10^3/uL (4.0-10.5)
[2020-01-11 17:36] LABS: APPEARANCE,URINE CLOUDY; BILIRUBIN,URINE NEGATIVE (NEGATIVE); COLOR,URINE YELLOW; GLUCOSE, URINE NEGATIVE (NEGATIVE); KETONES,URINE NEGATIVE (NEGATIVE); LEUKOCYTE ESTERASE,URINE TRACE (NEGATIVE); NITRITE,URINE NEGATIVE (NEGATIVE); PROTEIN,URINE 100 mg/dL (NEGATIVE); URINE SPECIFIC GRAVITY 1.017; UROBILINOGEN,URINE NEGATIVE mg/dL (<2.0)
[2020-01-11 17:43] LABS: ALBUMIN 4.5 g/dL (3.5-5.0); ALKALINE PHOSPHATASE 75 U/L (38-126); ANION GAP 5 (5-19); ASPARTATE AMINO TRANSFERASE 25 U/L (14-36); BILIRUBIN,TOTAL 0.3 mg/dL (0.2-1.3); BLOOD UREA NITROGEN 11 mg/dL (7-20); CALCIUM 9.5 mg/dL (8.4-10.2); CARBON DIOXIDE 28 mmol/L (22-30); CHLORIDE 105 mmol/L (98-107); GLUCOSE 98 mg/dL (75-110); TOTAL PROTEIN 7.5 g/dL (6.3-8.2)
--- NOTE | 2020-01-11 18:30 | RADIOLOGY REPORT (SQ) ---
EXAM DESCRIPTION: CT ABD/PELVIS WITH IV ONLY IMAGES COMPLETED DATE/TIME: 01/11/2020 6:17 pm REASON FOR STUDY: abdominal pain COMPARISON: None. TECHNIQUE: CT scan of the abdomen and pelvis performed using helical scanning technique with dynamic intravenous contrast injection. No oral contrast. Images reviewed with lung, soft tissue, and bone windows. Reconstructed coronal and sagittal MPR images reviewed. Delayed images for evaluation of the urinary system also acquired. All images stored on PACS. All CT scanners at this facility use dose modulation, iterative reconstruction, and/or weight based d osing when appropriate to reduce radiation dose to as low as reasonably achievable (ALARA). [facility]: Dose Right [facility]: CareDose [facility]: Dose Right [facility]: Teradose 4D [facility]: Visys CONTRAST TYPE AND DOSE: contrast/concentration: Isovue 350.00 mg/ml; Total Contrast Delivered: 90.0 ml; Total Saline Delivered: 70.0 ml RENAL FUNCTION: None required. The patient is less than 50 years old. RADIATION DOSE: CT Rad equipment meets quality standard of care and radiation dose reduction techniq ues were employed. CTDIvol: 10.3 - 14.5 mGy. DLP: 1252 mGy-cm.. LIMITATIONS: None. FINDINGS: LOWER CHEST: No significant findings. No nodules or infiltrates. LIVER: Normal size. No masses. No dilated ducts. SPLEEN: Normal size. No focal lesions. PANCREAS: No masses. No significant calcifications. No adjacent inflammation or peripancreatic fluid collections. Pancreatic duct not dilated. GALLBLADDER: No identified stones by CT criteria. No inflammatory changes to suggest cholecystitis. ADRENAL GLANDS: No significant masses or asymmetry. RIGHT KIDNEY AND URETER: No solid masses. No significant calcifications. No hydronephrosis or hyd roureter. LEFT KIDNEY AND URETER: No solid masses. 1.5 cm calcification in the left renal pelvis nonobstructi ve. No hydronephrosis or hydroureter. AORTA AND VESSELS: No aneurysm. No dissection. Renal arteries, SMA, celiac without stenosis. RETROPERITONEUM: No retroperitoneal adenopathy, hemorrhage or masses. BOWEL AND PERITONEAL CAVITY: No masses or inflammatory changes. No free fluid or peritoneal masses. APPENDIX: Not visualized. PELVIS: BTL clips. No masses. ABDOMINAL WALL: No masses. No hernias. BONES: No significant or acute findings. OTHER: No other significant finding. . IMPRESSION: Nonobstructed 1.5 cm calculus in the left renal pelvis. TECHNICAL DOCUMENTATION: JOB ID: [id number] Quality ID # [id number]: Final reports with documentation of one or more dose reduction techniques (e.g., Au tomated exposure control, adjustment of the mA and/or kV according to patient size, use of iterative reconstruction technique) 2010 [employer]- All Rights Reserved Reading location - IP/workstation name: [email or web address]
[2020-01-11] MEDS ORDERED: KETOROLAC TROMETHAMINE INJ/PF 30 MG/1 ML SDV IV ONE (19:30)
--- NOTE | 2020-01-11 21:25 | RADIOLOGY REPORT (SQ) ---
EXAM DESCRIPTION: US PELVIS COMPLETED DATE/TME: 01/11/2020 19:29 CLINICAL HISTORY: 39 years, Female, llq pain COMPARISON: Prior CT from earlier the same day TECHNIQUE: Axial 2-D grayscale images of the pelvis were acquired. Doppler was utilized. LIMITATIONS: None. FINDINGS: Uterus measures 7.6 x 4.7 x 5.5 cm in size. Endometrial stripe thickness measures 4 mm. A small amount of fluid is noted within the endometrial cavity. Cervix is closed, measuring 2.6 cm in length. Right ovary measures 3.0 x 2.0 x 1.5 cm in size. It contains an anechoic lesion measuring 1.3 x 0.8 x 0.8 cm in size, suggestive of a simple ovarian cyst, a benign finding for which no further follow-up is required. It otherwise demonstrates normal echogenicity and normal low resistance arterial waveforms/venous flow. Left ovary measures 2.6 x 1.3 x 1.7 cm in size. It contains a normal-appearing follicle. Otherwise demonstrates normal low resistance arterial waveforms/venous flow. IMPRESSION: No acute sonographic abnormality. copyright 2010 [employer]- All Rights Reserved
== END 2020-01-11 22:30 | disposition left against medical advice (07) ==
LOC: ER 15:33
DX: N20.0 Calculus of kidney (principal); N83.201 Unspecified ovarian cyst, right side; R10.32 Left lower quadrant pain; R10.814 Left lower quadrant abdominal tenderness; R11.0 Nausea; F17.200 Nicotine dependence, unspecified, uncomplicated; F12.10 Cannabis abuse, uncomplicated; J45.909 Unspecified asthma, uncomplicated; Z87.440 Personal history of urinary (tract) infections; Z91.040 Latex allergy status; Z88.0 Allergy status to penicillin; Z88.6 Allergy status to analgesic agent; Z88.5 Allergy status to narcotic agent
CPT/HCPCS: 99284; 96361; 96374; 36415; 83690; 85025; 81025; 80053; 81001; 76856; 93976; 74177; J3490; J1885; J7120

== ENCOUNTER → 2020-01-29 | Outpatient (CLI) | payer MEDICAID ==
[2020-01-29 13:15] LABS: ABSOLUTE BASOPHILS # (AUTO) 0.1 10^3/uL (0.0-0.2); ABSOLUTE EOSINOPHILS # (AUTO) 0.1 10^3/uL (0.0-0.6); ABSOLUTE LYMPHOCYTES (AUTO) 3.3 10^3/uL (0.5-4.7); ABSOLUTE MONOCYTES (AUTO) 0.5 10^3/uL (0.1-1.4); ABSOLUTE NEUT (AUTO) 4.9 10^3/uL (1.7-8.2); BASOPHILS % (AUTO) 0.7 % (0-2); HEMATOCRIT 39.8 % (36.0-47.0); HEMOGLOBIN 14.3 g/dL (12.0-15.5); LYMPHOCYTES % (AUTO) 37.2 % (13-45); MEAN CORPUSCULAR HEMOGLOBIN 31.4 pg (27.0-33.4); MEAN CORPUSCULAR HGB CONC 35.8 g/dL (32.0-36.0); MEAN CORPUSCULAR VOLUME 88 fl (80-97); MONOCYTES % (AUTO) 5.7 % (3-13); PLATELET COUNT 296 10^3/uL (150-450); RED BLOOD COUNT 4.54 10^6/uL (3.72-5.28); RED CELL DISTRIBUTION WIDTH 13.6 % (11.5-14.0); SEGMENTED NEUTROPHILS % (AUTO) 55.4 % (42-78); TOTAL CELLS COUNTED % (AUTO) 100 %; WHITE BLOOD COUNT 8.8 10^3/uL (4.0-10.5)
[2020-01-29 13:39] LABS: ALBUMIN 4.5 g/dL (3.5-5.0); ALKALINE PHOSPHATASE 75 U/L (38-126); ANION GAP 9 (5-19); ASPARTATE AMINO TRANSFERASE 26 U/L (14-36); BILIRUBIN,TOTAL 0.3 mg/dL (0.2-1.3); BLOOD UREA NITROGEN 9 mg/dL (7-20); CALCIUM 9.6 mg/dL (8.4-10.2); CARBON DIOXIDE 23 mmol/L (22-30); CHLORIDE 104 mmol/L (98-107); GLUCOSE 126 mg/dL (75-110); POTASSIUM 4.2 mmol/L (3.6-5.0); TOTAL PROTEIN 7.3 g/dL (6.3-8.2)
[2020-01-29 13:44] LABS: C-REACTIVE PROTEIN 5.2 mg/L (<10.0)
[2020-01-29 13:56] LABS: ERYTHROCYTE SEDIMENTATION RATE 24 mm/hr (0-20)
[2020-01-29 14:46] LABS: CHLAM PCR NOT DETECTED (NOT DETECT)
== END ==
LOC: OD 12:43
PROVIDERS: ATTEND Physician Assistant
DX: R10.32 Left lower quadrant pain (principal); Z72.51 High risk heterosexual behavior
CPT/HCPCS: 36415; 80053; 85025; 85652; 86140; 87491; 87591

== ENCOUNTER 2020-02-13 06:59 | Day surgery (SDC) | payer MEDICAID ==
[2020-02-10 12:37] LABS: HEMATOCRIT 41.4 % (36.0-47.0); HEMOGLOBIN 14.3 g/dL (12.0-15.5); MEAN CORPUSCULAR HEMOGLOBIN 30.7 pg (27.0-33.4); MEAN CORPUSCULAR HGB CONC 34.7 g/dL (32.0-36.0); MEAN CORPUSCULAR VOLUME 89 fl (80-97); PLATELET COUNT 298 10^3/uL (150-450); RED BLOOD COUNT 4.67 10^6/uL (3.72-5.28); RED CELL DISTRIBUTION WIDTH 13.5 % (11.5-14.0); WHITE BLOOD COUNT 9.7 10^3/uL (4.0-10.5)
[~2020-02-13 06:59] MED LIST: LACTATED RINGERS 1000 ML IV PRN; LIDOCAINE 0.5% INJ-PF (5 MG/ML) 50 ML SDV SUBCUT PRN
[2020-02-13] MEDS ORDERED: PROPOFOL INJ 200 MG/20 ML VIAL IV ONE (07:47)
[2020-02-13] MEDS ORDERED: MEPERIDINE HCL/PF INJ 25 MG/1 ML DISP.SYRIN IV PRN (07:53)
[2020-02-13] MEDS ORDERED: FENTANYL CITRATE INJ/PF 100 MCG/2 ML AMPUL IV PRN (07:53)
[2020-02-13] MEDS ORDERED: PROMETHAZINE HCL INJ 25 MG/1 ML VIAL IV PRN ×2 (07:53)
[2020-02-13] MEDS ORDERED: DIPHENHYDRAMINE HCL 50 MG/ML VIAL IV PRN (07:53)
[2020-02-13 09:49] VITALS: BP 102/54
--- NOTE | 2020-02-13 11:33 | Operative Report ---
Operative Report DATE OF SURGERY: 02/13/20 Operative Report: The risk, benefits and alternatives of the procedure including the risk of bleeding, perforation requiring surgery have been explained to the patient in detail and informed consent has been obtained. The patient is taken back to the operating room and placed in a left, lateral decubital position. Timeout was called. Propofol medication is administered. Rectal examination is done which did not reveal any masses, tears or fissures. An Olympus upper scope was introduced into the patient's rectum. Scope was then carefully advanced all the way to the cecum. The cecum was identified by the usual anatomical landmarks including the ileocecal valve as well as the appendiceal office. Photodocumentation is obtained. Scope was then sequentially pulled back via the various segments of the colon including the ascending colon, hepatic flexure, transverse colon, splenic flexure, descending colon and finally into the rectosigmoid portions of the colon. Retroflexion maneuver is performed. PREOPERATIVE DIAGNOSIS: Abdominal pain, change in bowel habits POSTOPERATIVE DIAGNOSIS: Normal terminal terminal ileum. Right-sided inflammation status post biopsy. Colon polyp in the sigmoid removed via snare p olypectomy and retrieved OPERATION: Colonoscopy with snare polypectomy colonoscopy with biopsy SURGEON: BETSY AMES ANESTHESIA: LMAC TISSUE REMOVED OR ALTERED: As noted above. COMPLICATIONS: None. ESTIMATED BLOOD LOSS: None. INTRAOPERATIVE FINDINGS: As noted above. PROCEDURE: Patient tolerated the procedure well. No immediate postprocedure complications are noted. Patient is discharged in good condition. Discharge date 02/13/2020. Discharge diet: Regular. Discharge activity: Regular. 2 to 3-week follow-up to discuss findings. Patient is instructed to call the office or proceed to the emergency room should there be any further problems or questions. Wait on the pathology. 3 to 5-year surveillance colonoscopy.
== END 2020-02-13 09:40 | disposition home or self-care (01) ==
LOC: OROUT 06:59
PROVIDERS: ATTEND Internal Medicine Gastroenterology
DX: Z12.11 Encounter for screening for malignant neoplasm of colon (principal); K52.9 Noninfective gastroenteritis and colitis, unspecified; K63.5 Polyp of colon; E78.5 Hyperlipidemia, unspecified; R73.03 Prediabetes; E66.9 Obesity, unspecified; F17.210 Nicotine dependence, cigarettes, uncomplicated; Z79.899 Other long term (current) drug therapy; Z88.0 Allergy status to penicillin; Z88.5 Allergy status to narcotic agent; Z91.040 Latex allergy status
CPT/HCPCS: 45380; 45385; 36415; 85027; 87635; 88305 ×2; J2704; C9803; 811

== ENCOUNTER 2020-02-28 06:38 | Day surgery (SDC) | payer MEDICAID ==
[2020-02-28] MEDS ORDERED: PROPOFOL INJ 200 MG/20 ML VIAL IV ONE (07:27)
[2020-02-28] MEDS ORDERED: LIDOCAINE 2% INJ (20 MG/ML) 20 ML MDV ONE (07:27)
--- NOTE | 2020-02-28 08:05 | Operative Report ---
Operative Report DATE OF SURGERY: 02/28/20 Operative Report: The risks benefits and alternatives of the procedure explained to the patient in detail and informed consent is obtained .A GIF Olympus video scope was inserted into the patient's mouth and hypopharynx, the esophagus is identified intubated and insufflated, the scope was then advanced through the esophagus stomach and duodenum, retroflexion maneuver is done, the esophagus stomach and first and second portions of the duodenum examined PREOPERATIVE DIAGNOSIS: History of hematemesis POSTOPERATIVE DIAGNOSIS: Esophageal ulcer question healing Tianna-Wills tear. Hiatal hernia. Gastritis status post biopsy rule out Helicobacter pylori OPERATION: EGD with biopsy SURGEON: BETSY AMES ANESTHESIA: LMAC TISSUE REMOVED OR ALTERED: As noted above. COMPLICATIONS: None. ESTIMATED BLOOD LOSS: None. INTRAOPERATIVE FINDINGS: As noted above. PROCEDURE: Patient tolerated the procedure well. No immediate postprocedure complications are noted. Patient is sent back to recovery in good condition. Discharge date 02/28/2020. Discharge diet: Regular. Discharge activity: Regular. 2 to 3-week follow-up to discuss findings. Patient is instructed call the office or proceed to the emergency room should there be any further problems or questions. Wait on the pathology.
--- NOTE | 2020-02-28 08:49 | RADIOLOGY REPORT (SQ) ---
EXAM DESCRIPTION: CHEST SINGLE VIEW IMAGES COMPLETED DATE/TIME: 02/28/2020 8:41 am REASON FOR STUDY: aspiration COMPARISON: 05/16/2019 EXAM PARAMETERS: NUMBER OF VIEWS: One view. TECHNIQUE: Single frontal radiographic view of the chest acquired. RADIATION DOSE: NA LIMITATIONS: None. FINDINGS: LUNGS AND PLEURA: No opacities, masses or pneumothorax. No pleural effusion. MEDIASTINUM AND HILAR STRUCTURES: No masses. Contour normal. HEART AND VASCULAR STRUCTURES: Heart normal in size. Normal vasculature. BONES: No acute findings. HARDWARE: None in the chest. OTHER: No other significant finding. IMPRESSION: No focal consolidation or other evidence of acute intrathoracic process. TECHNICAL DOCUMENTATION: JOB ID: [id number] 2010 [employer]- All Rights Reserved Reading location - IP/workstation name: [email or web address]
[2020-02-28 13:09] VITALS: BP 121/67
== END 2020-02-28 09:15 | disposition home or self-care (01) ==
LOC: END 06:38
PROVIDERS: ATTEND Internal Medicine Gastroenterology
DX: K21.9 Gastro-esophageal reflux disease without esophagitis (principal); K92.0 Hematemesis; K44.9 Diaphragmatic hernia without obstruction or gangrene; K29.50 Unspecified chronic gastritis without bleeding; Z79.899 Other long term (current) drug therapy; Z86.010 Personal history of colon polyps; E78.5 Hyperlipidemia, unspecified; R73.03 Prediabetes; F17.210 Nicotine dependence, cigarettes, uncomplicated; Z88.0 Allergy status to penicillin; Z88.5 Allergy status to narcotic agent; Z91.040 Latex allergy status
CPT/HCPCS: 43239; 88342 ×2; 88305 ×2; 71045; 00731; J3490; J2704; 731

== ENCOUNTER 2020-03-10 22:23 | Emergency (ER) | payer MEDICAID ==
[2020-03-10 22:49] LABS: ABSOLUTE BASOPHILS # (AUTO) 0.1 10^3/uL (0.0-0.2); ABSOLUTE EOSINOPHILS # (AUTO) 0.1 10^3/uL (0.0-0.6); ABSOLUTE LYMPHOCYTES (AUTO) 3.6 10^3/uL (0.5-4.7); ABSOLUTE MONOCYTES (AUTO) 0.8 10^3/uL (0.1-1.4); BASOPHILS % (AUTO) 0.7 % (0-2); EOSINOPHILS % (AUTO) 0.7 % (0-6); HEMATOCRIT 39.6 % (36.0-47.0); HEMOGLOBIN 13.5 g/dL (12.0-15.5); LYMPHOCYTES % (AUTO) 26.4 % (13-45); MEAN CORPUSCULAR HEMOGLOBIN 30.1 pg (27.0-33.4); MEAN CORPUSCULAR HGB CONC 34.1 g/dL (32.0-36.0); MEAN CORPUSCULAR VOLUME 88 fl (80-97); MONOCYTES % (AUTO) 5.9 % (3-13); PLATELET COUNT 291 10^3/uL (150-450); RED BLOOD COUNT 4.49 10^6/uL (3.72-5.28); RED CELL DISTRIBUTION WIDTH 13.2 % (11.5-14.0); SEGMENTED NEUTROPHILS % (AUTO) 66.3 % (42-78); TOTAL CELLS COUNTED % (AUTO) 100 %; WHITE BLOOD COUNT 13.6 10^3/uL (4.0-10.5)
[2020-03-10 23:08] LABS: ALBUMIN 4.1 g/dL (3.5-5.0); ALKALINE PHOSPHATASE 90 U/L (38-126); ANION GAP 8 (5-19); ASPARTATE AMINO TRANSFERASE 45 U/L (14-36); BILIRUBIN,TOTAL 0.4 mg/dL (0.2-1.3); BLOOD UREA NITROGEN 8 mg/dL (7-20); CALCIUM 9.7 mg/dL (8.4-10.2); CARBON DIOXIDE 24 mmol/L (22-30); CHLORIDE 104 mmol/L (98-107); CREATINE KINASE 39 U/L (30-135); GLUCOSE 143 mg/dL (75-110); POTASSIUM 3.5 mmol/L (3.6-5.0); TOTAL PROTEIN 7.1 g/dL (6.3-8.2)
[2020-03-10 23:31] LABS: CREATINE KINASE MB < 0.22 ng/mL (<4.55); TROPONIN I < 0.012 ng/mL
--- NOTE | 2020-03-11 00:38 | ER Document Report ---
ED General - General Chief Complaint: Chest Pain Stated Complaint: CHEST PAIN Time Seen by Provider: 03/11/20 00:36 Primary Care Provider: RAN MAGANA PA-C [Primary Care Provider] - Follow up as needed Notes: Patient is a 39-year-old female that comes emergency department by EMS for chief complaint of left-sided chest pain. She states symptoms started tonight, she states she developed a cough and pain with deep breaths. She states that she feels like she needs to cough but she is scared to because she feels like it will hurt her more in the left side of her chest. She denies fever, congestion, sore throat, bowel pain, nausea, vomiting, dizziness, passing out. She denies trauma. She smokes, smokes marijuana, drinks occasionally, takes medication for anxiety/depression, denies medical history otherwise. Positive family history for [place] (mother). EMS gave patient 324 mg of aspirin and 1 spray of nitrogl ycerin. Patient denies any symptoms currently unless she takes a deep breath or coughs. She denies recent travel or surgery, denies lower extremity swelling. She is on control. TRAVEL OUTSIDE OF THE [place] IN LAST 30 DAYS: No - Related Data Allergies/Adverse Reactions: amoxicillin [Amoxicillin] Allergy (Severe, Verified 02/25/20 11:41) rash latex [Latex] Allergy (Severe, Verified 02/13/20 07:20) RASH oxycodone HCl [From Percocet] Allergy (Severe, Verified 02/25/20 11:41) Hives Penicillins Allergy (Severe, Verified 02/25/20 11:41) rash Past Medical History - General Information source: Patient - Social History Smoking Status: Current Every Day Smoker Chew tobacco use (# tins/day): No Smoking Education Provided: Yes - <3 min Frequency of alcohol use: None Drug Abuse: Marijuana Lives with: Family Family History: Reviewed & Not Pertinent Patient has homicidal ideation: No - Past Medical History Cardiac Medical History: Denies: Hx Coronary Artery Disease, Hx Heart Attack, Hx Hypertension Pulmonary Medical History: Reports: Hx Asthma - CHILDHOOD, Hx Bronchitis Denies: Hx COPD, Hx Pneumonia Neurological Medical History: Denies: Hx Cerebrovascular Accident, Hx Seizures Endocrine Medical History: Reports: Hx Diabetes Mellitus Type 2 - Gestional. Denies: Hx Hyperthyroidism, Hx Hypothyroidism Renal/ Medical History: Denies: Hx Ovarian Cysts, Hx Peritoneal Dialysis, Hx Pelvic Inflammatory Disease Malignancy Medical History: Denies: Hx Breast Cancer, Hx Cervical Cancer, Hx Ovarian Cancer GI Medical History: Reports: Hx Gastroesophageal Reflux Disease. Denies: Hx Hiatal Hernia, Hx Ulcer Musculoskeletal Medical History: Denies Hx Arthritis Psychiatric Medical History: Reports: Hx Anxiety, Hx Bipolar Disorder, Hx Post Traumatic Stress Disorder Denies: Hx Depression, Hx Schizophrenia Infectious Medical History: Denies: Hx HIV Past Surgical History: Reports: Hx Section, Hx Tubal Ligation - Immunizations Hx Diphtheria, Pertussis, Tetanus Vaccination: Yes - received during Review of Systems - Review of Systems Constitutional: No symptoms reported EENT: No symptoms reported Cardiovascular: See HPI Respiratory: See HPI Gastrointestinal: No symptoms reported Genitourinary: No symptoms reported Female Genitourinary: No symptoms reported Musculoskeletal: No symptoms reported Skin: No symptoms reported Hematologic/Lymphatic: No symptoms reported Neurological/Psychological: No symptoms reported Physical Exam - Vital signs Vitals: Resp Pulse Ox 26 H 92 03/10/20 22:30 03/10/20 22:30 - Notes Notes: GENERAL: Alert, interacts well. No acute distress. HEAD: Normocephalic, atraumatic. EYES: Pupils equal, round, and reactive to light. Extraocular movements intact. ENT: Oral mucosa moist, tongue midline. Oropharynx unremarkable. Airway patent. Nares patent, sinuses non-tender, ear canals unremarkable, TM's intact. NECK: Full range of motion. Supple. Trachea midline. No lymphadenopathy. LUNGS: Clear to auscultation bilaterally, no wheezes, rales, or rhonchi. No respiratory distress. Non-tender chest wall. Patient appears to have pleuritic pain, clearly has pain with deep breaths. HEART: Regular rate and rhythm. No murmur ABDOMEN: Soft, non-tender. Non-distended. EXTREMITIES: Moves all 4 extremities spontaneously. No edema, normal radial and dorsalis pedis pulses bilaterally. No cyanosis. BACK: no cervical, thoracic, lumbar midline tenderness. No saddle anesthesia, normal distal neurovascular exam. Moves all extremities in full range of motion. NEUROLOGICAL: Alert and oriented x3. Normal speech. Cranial nerves II through XII grossly intact. Strength 5/5 in all extremities. PSYCH: Normal affect, normal mood. SKIN: Warm, dry, normal turgor. No rashes or lesions noted. Course - Re-evaluation Re-evalutation: Patient's oxygen is slightly borderline at times but even when she falls asleep it stays at 95 on average. She is able to ambulate without difficulty. Lungs are clear, she does have an occasional congested cough, however patient was de clining any cough or respiratory symptoms. Chest x-ray does appear to show pneumonia on the same side of patient's pain. No fever. CBC does show mild leukocytosis, d-dimer had been performed because of pleuritic pain, smoking, control use, this is slightly elevated. CTA will be performed after discussion with patient. Troponin is not elevated, cycled and not elevated. EKG nonspecific. CTA showing left-sided pneumonia with possible mass appearance, recommends reevaluation after treatment. Patient will be treated with Levaquin after discussion of options, she does have good primary care follow-up and she states that she will have repeat testing to make sure this resolves. I discussed return precautions at length. I discussed COVID testing but this was declined, I do suspect this is bacterial pneumonia based on her leukocytosis and unilateral pneumonia. Patient states appreciation and agreement with plan, stable and well-appearing at time of discharge. - Vital Signs Vital signs: Temp Pulse Resp BP Pulse Ox 19 105/59 L 96 03/11/20 04:01 03/11/20 04:01 03/11/20 04:01 - Laboratory Result Diagrams: 03/10/20 22:35 03/10/20 22:35 Laboratory results interpreted by me: 03/10/20 03/10/20 03/10/20 22:35 22:35 23:35 WBC 13.6 H Absolute Neuts (auto) 9.0 H D-Dimer 0.51 H Sodium 135.5 L Potassium 3.5 L Glucose 143 H AST 45 H ALT 52 H - EKG Interpretation by Me Additional EKG results interpreted by me: EKG shows sinus rhythm at a rate of 92, QTc 441, WA interval of 136. Normal axis. Slightly flattened T waves anteriorly but no T wave inversions or ST segment changes in consecutive leads. Discharge - Discharge Clinical Impression: Left-sided chest pain, Cough Pneumonia Qualifiers: Pneumonia type: due to unspecified organism Laterality: left Lung location: upper lobe of lung Qualified Code(s): J18.9 - Pneumonia, unspecified organism Condition: Stable Disposition: HOME, SELF-CARE Additional Instructions: Your heart work-up does not show any concerning findings, your work-up indicates a probable pneumonia. Take the antibiotics as prescribed to completion. Sy mptoms should simply go away. Because of the appearance of the CAT scan it is very important that you have a recheck with your primary care provider to make sure this is pneumonia and not something more concerning such as underlying cancer. Return if you worsen including difficulty breathing, spiking fevers, or any other concerning or worsening symptoms. Prescriptions: Levofloxacin [Levaquin 750 mg Tablet] 750 mg PO DAILY 4 Days #4 tablet Forms: Smoking Cessation Education, Return to Work Referrals: RAN MAGANA PA-C [Primary Care Provider] - Follow up as needed
[2020-03-11] MEDS ORDERED: KETOROLAC TROMETHAMINE INJ/PF 30 MG/1 ML SDV IV ONE (00:43)
--- NOTE | 2020-03-11 01:44 | RADIOLOGY REPORT (SQ) ---
EXAM DESCRIPTION: X-ray, single view of the chest CLINICAL HISTORY: 39 years Female, chest pain COMPARISON: Single view of the chest 02/28/2020 FINDINGS: Lungs: There is been development of nodular opacification in the left upper lobe and in the left medial lung base. The right lung is clear. No pneumothorax or pleural effusion. This may represent a process such as pneumonia. Mediastinum: Cardiac and mediastinal silhouette are unchanged. Bones: Osseous structures are normal. IMPRESSION: Interval development of scattered parenchymal consolidation in the left upper lobe and left lower lobe worrisome for pneumonia.
--- NOTE | 2020-03-11 04:10 | RADIOLOGY REPORT (SQ) ---
CT ANGIOGRAM CHEST WITH IV CONTRAST: 03/11/2020 3:07 AM CDT HISTORY: 39-year old patient with chest pain, dyspnea, elevated d-dimer. TECHNIQUE: Postcontrast CT through the chest was performed per protocol for CT angiography. 3D Multiplanar reformations were performed at the workstation. Reconstructed sagittal and coronal images were also obtained through the chest. This exam was performed according to our departmental dose-optimization program, which includes automated exposure control, adjustment of the mA and/or KV according to the patient's size and/or use of iterative reconstruction technique. COMPARISON: None available FINDINGS: The heart size is within normal limits of size. No significant mediastinal, supraclavicular, or axillary lymphadenopathy is seen. The thoracic aorta is within normal limits of size. No filling defects are seen within the pulmonary arteries to suggest a pulmonary artery embolism. The main pulmonary artery is within normal limits of size. The thyroid gland is unremarkable. The central tracheobronchial tree is patent. There is a masslike opacity at the anterior segment of the left upper lobe measuring at least 3.1 x 2.3 cm. This may represent developing infection. Interval follow-up is recommended to exclude an underlying mass. There is no evidence of pleural effusions or a pneumothorax. The bones demonstrate no suspicious lytic or blastic lesion. The visualized portions of the upper abdomen appear grossly unremarkable. IMPRESSION: There is a masslike opacity at the left upper lobe concerning for infection. Interval follow-up is recommended to an underlying neoplasm. No filling defect is seen to suggest a pulmonary artery embolism.
[2020-03-11] MEDS ORDERED: LEVOFLOXACIN 750 MG TABLET PO ONE (04:34)
[2020-03-11 04:52] VITALS: BP 105/59
== END 2020-03-11 04:53 | disposition home or self-care (01) ==
LOC: ER 22:23
DX: J18.9 Pneumonia, unspecified organism (principal); R07.9 Chest pain, unspecified; R05 Cough; Z88.0 Allergy status to penicillin; Z88.8 Allergy status to other drugs, medicaments and biological substances; F17.200 Nicotine dependence, unspecified, uncomplicated; J45.909 Unspecified asthma, uncomplicated; E11.9 Type 2 diabetes mellitus without complications
CPT/HCPCS: 99285; 96374; 36415; 82553; 82550; 84703; 85025; 80053; 84484; 85379; 71045; 71275; J1885; J3490

== ENCOUNTER 2020-05-05 17:44 | Emergency (ER) | payer MEDICAID ==
--- NOTE | 2020-05-05 19:26 | ER Document Report ---
ED Medical Screen (RME) - General Chief Complaint: Lower Abdominal Pain Stated Complaint: LOWER ABDOMINAL PAIN Time Seen by Provider: 05/05/20 19:19 Primary Care Provider: RAN MAGANA PA-C [Primary Care Provider] - Follow up as needed TRAVEL OUTSIDE OF THE [place] IN LAST 30 DAYS: No - HPI Notes: 05/05/20 19:24 40 yr old female presents presents to the emergency room for complaints of right lower quadrant left lower quadrant abdominal pain that started yesterday with noted hematuria with urination. Patient reports that she has had this pain for the last 6 months and has a referral waiting for the urologist but her pain became so severe that she has been able to go yet. Patient states she does not know her last menstrual cycle because she is on the Depakote shot. Denies any vaginal bleeding or vaginal discharge. Denies any nausea vomiting or diarrhea. Reports pain is 4 out of 5, throbbing sharp and stabbing. Bowel movement was an hour ago. Has not tried any [id number] medication for pain. Denies any chest pain, shortness of breath, fever or chills. I have greeted and performed a rapid initial assessment of this patient. A comprehensive ED assessment and evaluation of the patient, analysis of test results and completion of the medical decision making process will be conducted by additional ED providers. PHYSICAL EXAMINATION: GENERAL: Well-appearing, well-nourished and in no acute distress. CV: s1, s2 regular LUNGS: No respiratory distress abd: RLQ, LLQ abd pain, no cva tenderness appreciated. - Related Data Allergies/Adverse Reactions: amoxicillin [Amoxicillin] Allergy (Severe, Verified 02/25/20 11:41) rash latex [Latex] Allergy (Severe, Verified 02/13/20 07:20) RASH oxycodone HCl [From Percocet] Allergy (Severe, Verified 02/25/20 11:41) Hives Penicillins Allergy (Severe, Verified 02/25/20 11:41) rash Past Medical History - Past Medical History Cardiac Medical History: Denies: Hx Coronary Artery Disease, Hx Heart Attack, Hx Hypertension Pulmonary Medical History: Reports: Hx Asthma - CHILDHOOD, Hx Bronchitis Denies: Hx COPD, Hx Pneumonia Neurological Medical History: Denies: Hx Cerebrovascular Accident, Hx Seizures Endocrine Medical History: Reports: Hx Diabetes Mellitus Type 2 - Gestional. Denies: Hx Hyperthyroidism, Hx Hypothyroidism Renal/ Medical History: Denies: Hx Ovarian Cysts, Hx Peritoneal Dialysis, Hx Pelvic Inflammatory Disease Malignancy Medical History: Denies: Hx Breast Cancer, Hx Cervical Cancer, Hx Ovarian Cancer GI Medical History: Reports: Hx Gastroesophageal Reflux Disease. Denies: Hx Hiatal Hernia, Hx Ulcer Musculoskeltal Medical History: Denies Hx Arthritis Psychiatric Medical History: Reports: Hx Anxiety, Hx Bipolar Disorder, Hx Post Traumatic Stress Disorder Denies: Hx Depression, Hx Schizophrenia Infectious Medical History: Denies: Hx HIV Past Surgical History: Reports: Hx Section, Hx Tubal Ligation - Immunizations Hx Diphtheria, Pertussis, Tetanus Vaccination: Yes - received during Physical Exam - Vital signs Vitals: Temp Pulse Resp BP Pulse Ox 98.4 F 79 16 122/60 96 05/05/20 18:05 05/05/20 18:05 05/05/20 18:05 05/05/20 18:05 05/05/20 18:05 Course - Vital Signs Vital signs: Temp Pulse Resp BP Pulse Ox 98.4 F 79 16 122/60 96 05/05/20 18:05 05/05/20 18:05 05/05/20 18:05 05/05/20 18:05 05/05/20 18:05 Doctor's Discharge - Discharge Referrals: RAN MAGANA PA-C [Primary Care Provider] - Follow up as needed
[2020-05-05 20:07] LABS: APPEARANCE,URINE CLOUDY; BILIRUBIN,URINE NEGATIVE (NEGATIVE); COLOR,URINE AMBER; GLUCOSE, URINE NEGATIVE (NEGATIVE); KETONES,URINE TRACE mg/dL (NEGATIVE); LEUKOCYTE ESTERASE,URINE SMALL (NEGATIVE); NITRITE,URINE NEGATIVE (NEGATIVE); PROTEIN,URINE 100 mg/dL (NEGATIVE); URINE SPECIFIC GRAVITY 1.025
[2020-05-05 20:07] LABS: ABSOLUTE BASOPHILS # (AUTO) 0.1 10^3/uL (0.0-0.2); ABSOLUTE EOSINOPHILS # (AUTO) 0.2 10^3/uL (0.0-0.6); ABSOLUTE LYMPHOCYTES (AUTO) 2.9 10^3/uL (0.5-4.7); ABSOLUTE MONOCYTES (AUTO) 0.6 10^3/uL (0.1-1.4); ABSOLUTE NEUT (AUTO) 6.3 10^3/uL (1.7-8.2); BASOPHILS % (AUTO) 1.3 % (0-2); EOSINOPHILS % (AUTO) 1.6 % (0-6); HEMATOCRIT 41.3 % (36.0-47.0); HEMOGLOBIN 14.1 g/dL (12.0-15.5); LYMPHOCYTES % (AUTO) 28.8 % (13-45); MEAN CORPUSCULAR HEMOGLOBIN 30.2 pg (27.0-33.4); MEAN CORPUSCULAR HGB CONC 34.2 g/dL (32.0-36.0); MEAN CORPUSCULAR VOLUME 88 fl (80-97); MONOCYTES % (AUTO) 5.9 % (3-13); RED BLOOD COUNT 4.68 10^6/uL (3.72-5.28); RED CELL DISTRIBUTION WIDTH 14.1 % (11.5-14.0); SEGMENTED NEUTROPHILS % (AUTO) 62.4 % (42-78); TOTAL CELLS COUNTED % (AUTO) 100 %; WHITE BLOOD COUNT 10.2 10^3/uL (4.0-10.5)
[2020-05-05 20:13] LABS: ALBUMIN 4.3 g/dL (3.5-5.0); ALKALINE PHOSPHATASE 80 U/L (38-126); ANION GAP 11 (5-19); ASPARTATE AMINO TRANSFERASE 26 U/L (14-36); BILIRUBIN,DIRECT 0.3 mg/dL (0.0-0.4); BILIRUBIN,TOTAL 0.6 mg/dL (0.2-1.3); BLOOD UREA NITROGEN 11 mg/dL (7-20); CALCIUM 9.6 mg/dL (8.4-10.2); CARBON DIOXIDE 24 mmol/L (22-30); CHLORIDE 106 mmol/L (98-107); GLUCOSE 136 mg/dL (75-110); POTASSIUM 4.1 mmol/L (3.6-5.0); TOTAL PROTEIN 7.3 g/dL (6.3-8.2)
[2020-05-05 20:44] LABS: PLATELET COUNT 166 10^3/uL (150-450)
[2020-05-06] MEDS ORDERED: CIPROFLOXACIN HCL 500 MG TABLET PO ONE (00:40)
[2020-05-06] MEDS ORDERED: TAMSULOSIN HCL 0.4 MG CAP.SR.24H PO ONE (00:40)
--- NOTE | 2020-05-06 00:42 | ER Document Report ---
ED GI/ - General Chief Complaint: Lower Abdominal Pain Stated Complaint: LOWER ABDOMINAL PAIN Time Seen by Provider: 05/05/20 19:19 Primary Care Provider: RAN MAGANA PA-C [Primary Care Provider] - Follow up as needed Notes: Patient is a 40-year-old female presents the emergency department with a chief complaint of left lower abdominal pain and left flank pain. Patient states that her symptoms started yesterday. Patient stated that she had some blood in her urine. Patient states that she gets this pain on and off for the past 6 months. Patient has history of kidney stone. Patient states that she has an appointment with urology on the of the month. Patient states that she has been on and off Flomax for kidney stones. Patient denies any vaginal bleeding or vaginal discharge. Patient is on the Depo shot. Denies any dysuria. TRAVEL OUTSIDE OF THE [place] IN LAST 30 DAYS: No - Related Data Allergies/Adverse Reactions: amoxicillin [Amoxicillin] Allergy (Severe, Verified 02/25/20 11:41) rash latex [Latex] Allergy (Severe, Verified 02/13/20 07:20) RASH oxycodone HCl [From Percocet] Allergy (Severe, Verified 02/25/20 11:41) Hives Penicillins Allergy (Severe, Verified 02/25/20 11:41) rash Past Medical History - General Information source: Patient - Social History Smoking Status: Current Every Day Smoker Family History: Reviewed & Not Pertinent - Past Medical History Cardiac Medical History: Denies: Hx Coronary Artery Disease, Hx Heart Attack, Hx Hypertension Pulmonary Medical History: Reports: Hx Asthma - CHILDHOOD, Hx Bronchitis Denies: Hx COPD, Hx Pneumonia Neurological Medical History: Denies: Hx Cerebrovascular Accident, Hx Seizures Endocrine Medical History: Reports: Hx Diabetes Mellitus Type 2 - Gestional. Denies: Hx Hyperthyroidism, Hx Hypothyroidism Renal/ Medical History: Denies: Hx Ovarian Cysts, Hx Peritoneal Dialysis, Hx Pelvic Inflammatory Disease Malignancy Medical History: Denies: Hx Breast Cancer, Hx Cervical Cancer, Hx Ovarian Cancer GI Medical History: Reports: Hx Gastroesophageal Reflux Disease. Denies: Hx Hiatal Hernia, Hx Ulcer Musculoskeletal Medical History: Denies Hx Arthritis Psychiatric Medical History: Reports: Hx Anxiety, Hx Bipolar Disorder, Hx Post Traumatic Stress Disorder Denies: Hx Depression, Hx Schizophrenia Infectious Medical History: Denies: Hx HIV Past Surgical History: Reports: Hx Section, Hx Tubal Ligation - Immunizations Hx Diphtheria, Pertussis, Tetanus Vaccination: Yes - received during Review of Systems - Review of Systems Notes: REVIEW OF SYSTEMS: CONSTITUTIONAL : Denies recent illness. Denies recent unintentional weight loss. Denies fever, chills, or sweats. EENT: Denies eye, ear, throat, or mouth pain, discharge, or symptoms. Denies nasal or sinus congestion. CARDIOVASCULAR: Denies chest pain. RESPIRATORY: Denies shortness of breath, cough, congestion, difficulty breathing, or wheezing. GASTROINTESTINAL: See HPI. GENITOURINARY: Denies difficulty urinating, burning, blood in urine, urgency or frequency. MUSCULOSKELETAL: See HPI. Denies joint pain or swelling. SKIN: Denies rash, itchiness, or lesions HEMATOLOGIC : Denies easy bruising or bleeding. LYMPHATIC: Denies swollen, painful, enlarged glands. NEUROLOGICAL: Denies no numbness or tingling denies weakness. Denies headache. Denies altered mental status. Denies alteration in speech. PSYCHIATRIC: Denies stress, anxiety, alteration in sleep patterns, or depression. All other systems reviewed and negative. Physical Exam - Vital signs Vitals: Temp Pulse Resp BP Pulse Ox 98.4 F 79 16 122/60 96 05/05/20 18:05 05/05/20 18:05 05/05/20 18:05 05/05/20 18:05 05/05/20 18:05 - Notes Notes: PHYSICAL EXAMINATION: GENERAL: Appears well, healthy, well-nourished, no acute distress. HEAD: Normocephalic, atraumatic. EYES: PERRL, conjunctiva normal, all extraocular movements intact, sclera nonicteric ENT: Moist mucous membranes. NECK: Supple, no noticeable swelling, redness, rash. Normal range of motion. LUNGS: Equal breath sounds bilaterally and clear to auscultation. No wheezes rales or rhonchi. CARDIOVASCULAR: S1-S2, regular rate, regular rhythm. Radial pulses 2+, normal. ABDOMEN: Normoactive bowel sounds. Soft, nontender, no guarding, no rebound tenderness, and no masses palpated. EXTREMITIES: Normal strength and range of motion, no pitting or edema. No cyanosis. NEUROLOGICAL: Moves all extremities upon command. Strength 5/5 in all extremities. PSYCH: Normal mood, normal affect. SKIN: Warm, dry. No rash, lesions, ulcerations noted. Normal skin turgor. BACK: Left CVA tenderness upon percussion. Course - Re-evaluation Re-evalutation: 05/06/20 Hematology is unremarkable. Chemistries are also unremarkable. Lipase is normal. LFTs are normal also. Urinalysis shows a large amount of blood and a small amount of leukocytes in her urine. Patient also has 1+ bacteria noted. Patient had been waiting in the emergency department for about 6 hours, but due to beds being called for inpatient patients, the patient cannot be evaluated in the back. Based off the patient's labs, I will treat her for a urinary tract infection. Patient states that she was on Keflex about a month ago. I will place her on ciprofloxacin. We will also give her Flomax to cover a possible kidney stone. Patient is nontoxic in appearance. Vital signs are stable. Follow-up precautions were given. Verbal discharge instructions were given to the patient. They verbalized understanding. They are stable for discharge. - Vital Signs Vital signs: Temp Pulse Resp BP Pulse Ox 98.6 F 79 16 122/67 97 05/06/20 00:48 05/06/20 00:48 05/06/20 00:48 05/06/20 00:48 05/06/20 00:48 - Laboratory Result Diagrams: 05/05/20 19:38 05/05/20 19:38 Laboratory results interpreted by me: 05/05/20 05/05/20 05/05/20 19:31 19:38 19:38 RDW 14.1 H Glucose 136 H Urine Protein 100 H Urine Ketones TRACE H Urine Blood LARGE H Urine Urobilinogen 2.0 H Ur Leukocyte Esterase SMALL H Discharge - Discharge Clinical Impression: Urinary tract infection Qualifiers: Urinary tract infection type: acute cystitis Hematuria presence: with hematuria Qualified Code(s): N30.01 - Acute cystitis with hematuria Condition: Stable Disposition: HOME, SELF-CARE Instructions: Urinary Tract Infection ([facility]) Additional Instructions: You were seen today in the emergency department for flank pain and abdominal pain. You have a urinary tract infection. You are also being started on Flomax. Patient is to drink plenty of fluids. You can take ibuprofen 600 mg every 6 hours as needed for your pain. Prescriptions: Ciprofloxacin HCl [Cipro 500 mg Tablet] 500 mg PO BID #14 tablet Tamsulosin HCl [Flomax 0.4 mg Cap.sr] 0.4 mg PO DAILY #7 cap.sr.24h Referrals: RAN MAGANA PA-C [Primary Care Provider] - Follow up as needed
[2020-05-06 00:48] VITALS: BP 122/67
== END 2020-05-06 00:49 | disposition home or self-care (01) ==
LOC: ER 17:44
DX: N30.01 Acute cystitis with hematuria (principal); F17.200 Nicotine dependence, unspecified, uncomplicated; Z87.442 Personal history of urinary calculi; Z79.3 Long term (current) use of hormonal contraceptives; Z88.0 Allergy status to penicillin; Z91.040 Latex allergy status; Z88.6 Allergy status to analgesic agent; Z88.5 Allergy status to narcotic agent
CPT/HCPCS: 99285; 36415; 87086; 83690; 85025; 81025; 80053; 81001; J3490 ×2

== ENCOUNTER 2020-06-19 08:24 | Day surgery (SDC) | payer MEDICAID ==
[2020-06-16 12:22] LABS: HEMATOCRIT 40.8 % (36.0-47.0); HEMOGLOBIN 14.3 g/dL (12.0-15.5); MEAN CORPUSCULAR HEMOGLOBIN 30.8 pg (27.0-33.4); MEAN CORPUSCULAR VOLUME 88 fl (80-97); PLATELET COUNT 322 10^3/uL (150-450); RED BLOOD COUNT 4.63 10^6/uL (3.72-5.28); RED CELL DISTRIBUTION WIDTH 14.8 % (11.5-14.0); WHITE BLOOD COUNT 8.3 10^3/uL (4.0-10.5)
[2020-06-16 12:45] LABS: ANION GAP 11 (5-19); BLOOD UREA NITROGEN 6 mg/dL (7-20); CALCIUM 9.9 mg/dL (8.4-10.2); CARBON DIOXIDE 22 mmol/L (22-30); CHLORIDE 108 mmol/L (98-107); GLUCOSE 137 mg/dL (75-110); POTASSIUM 4.2 mmol/L (3.6-5.0)
--- NOTE | 2020-06-16 12:49 | RADIOLOGY REPORT (SQ) ---
EXAM DESCRIPTION: CHEST PA/LATERAL IMAGES COMPLETED DATE/TIME: 06/16/2020 11:13 am REASON FOR STUDY: PRE-OP COMPARISON: 04/03/2020 EXAM PARAMETERS: NUMBER OF VIEWS: two views TECHNIQUE: Digital Frontal and Lateral radiographic views of the chest acquired. RADIATION DOSE: NA LIMITATIONS: none FINDINGS: LUNGS AND PLEURA: No opacities, masses or pneumothorax. No pleural effusion. MEDIASTINUM AND HILAR STRUCTURES: No masses or contour abnormalities. HEART AND VASCULAR STRUCTURES: Heart normal size. No evidence for failure. BONES: No acute findings. HARDWARE: None in the chest. OTHER: No other significant finding. IMPRESSION: NO SIGNIFICANT RADIOGRAPHIC FINDING IN THE CHEST. TECHNICAL DOCUMENTATION: JOB ID: [id number] 2010 [email or web address] All Rights Reserved Reading location - IP/workstation name: [email or web address]
[~2020-06-19 08:24] MED LIST changes: +ACETAMINOPHEN 1,000 MG/100 ML RTUPB IV PRN; +DEXAMETHASONE SOD PHOSPHATE INJ 4 MG/1 ML VIAL ONE; +FENTANYL CITRATE INJ/PF 250 MCG/5 ML AMPULE ONE; +IBUPROFEN 800 MG in NORMAL SALINE 250 ML IV PRN; +KETOROLAC TROMETHAMINE 60 MG/2 ML SDV ONE; -LIDOCAINE 0.5% INJ-PF (5 MG/ML) 50 ML SDV SUBCUT PRN; +LIDOCAINE 2% INJ-PF (20 MG/ML) 10 ML AMPUL ONE; +MIDAZOLAM 2 MG/2 ML INJ ONE; +ONDANSETRON HCL INJ/PF 4 MG/2 ML SDV ONE; +PREGABALIN 50 MG CAPSULE PO PRN; +PROPOFOL INJ 200 MG/20 ML VIAL IV ONE; +VANCOMYCIN HCL 1,000 MG in DEXTROSE 5%-WATER 250 ML IV PRN
[2020-06-19] MEDS ORDERED: PREGABALIN 50 MG CAPSULE ONE (08:41)
[2020-06-19] MEDS ORDERED: EPHEDRINE SULFATE INJ 50 MG/1 ML AMPULE ONE (09:33)
[2020-06-19] MEDS ORDERED: BUPIVACAINE HCL 0.25 % INJ/PF (2.5 MG/1 ML) 30 ML VIAL ONE (09:41)
[2020-06-19] MEDS ORDERED: ONDANSETRON HCL INJ/PF 4 MG/2 ML SDV IV PRN (10:25)
[2020-06-19] MEDS ORDERED: FENTANYL CITRATE INJ/PF 100 MCG/2 ML AMPUL IV PRN ×3 (10:25)
[2020-06-19] MEDS ORDERED: MEPERIDINE HCL/PF INJ 25 MG/1 ML DISP.SYRIN IV PRN (10:25)
[2020-06-19] MEDS ORDERED: PROMETHAZINE HCL INJ 25 MG/1 ML VIAL IV PRN ×2 (10:25)
[2020-06-19] MEDS ORDERED: DIPHENHYDRAMINE HCL 50 MG/ML VIAL IV PRN (10:25)
--- NOTE | 2020-06-19 12:48 | Discharge Summary ---
Discharge Summary (SDC) - Discharge Final Diagnosis: left inguinal hernia Date of Surgery: 06/19/20 Discharge Date: 06/19/20 Condition: Stable Treatment or Instructions: Discharge home. Diet: as tolerated. Activity: no lifting >10 lbs x 4 weeks. F/u 7-10 days. Lawrence 10/325mg PO q6 hrs PRN pain. OK to shower on Monday. No tub baths or swimming pools x 2 weeks. Prescriptions: Hydrocodone/Acetaminophen [Lawrence 10-325 mg Tablet] 1 tab PO Q6HP PRN #14 tablet PRN Reason: For Pain Referrals: RAN MAGANA PA-C [Primary Care Provider] - Discharge Diet: As Tolerated Respiratory Treatments at Home: Deep Breathing/Coughing, Incentive Spirometer Discharge Activity: No Lifting Over 10 Pounds, No Lifting/Push/Pulling Home Care Assistance: None Needed Report the Following to Your Physician Immediately: Shortness of Breath, Nausea, Vomiting, Increase in Pain, Fever over 101 Degrees, Unusual Bleeding, Redness
[2020-06-19] MEDS ORDERED: HYDROCODONE/ACETAMINOPHEN 10-325 MG TABLET PO PRN (12:55)
[2020-06-19] MEDS ORDERED: ROCURONIUM BROMIDE INJ 50 MG/5 ML VIAL IV ONE (14:48)
[2020-06-19] MEDS ORDERED: GLYCOPYRROLATE 1 MG/5 ML VIAL ONE (14:48)
[2020-06-19] MEDS ORDERED: SUCCINYLCHOLINE CHLORIDE INJ 200 MG/10 ML VIAL ONE (14:48)
[2020-06-19] MEDS ORDERED: NEOSTIGMINE METHYLSULFATE 10 MG/10 ML VIAL ONE (14:48)
[2020-06-19] MEDS ORDERED: METOCLOPRAMIDE HCL INJ/PF 10 MG/2 ML SDV ONE (14:48)
[2020-06-19 16:46] VITALS: BP 113/65
--- NOTE | 2020-06-22 08:20 | Operative Report ---
Nonrecallable Operative Report DATE OF SURGERY: 06/19/20 PREOPERATIVE DIAGNOSIS: Symptomatic left inguinal hernia POSTOPERATIVE DIAGNOSIS: Same as above OPERATION: Robot-assisted laparoscopic left inguinal hernia repair with mesh SURGEON: JULIETH ALMANZAR 1ST MAINTENANCE MECHANIC 2ND SHIFT: TONYA RINCON ANESTHESIA: GA TISSUE REMOVED OR ALTERED: None COMPLICATIONS: None apparent ESTIMATED BLOOD LOSS: Minimal PROCEDURE: Drains/implants: Left large 3D max inguinal hernia mesh. Procedure in detail: After informed consent was obtained, the patient was brought to the operating room and laid in the supine position. The area of the abdomen was prepped and draped in a normal sterile fashion. A supraumbilical incision was created with a 15 blade scalpel. Dissection was carried through the subcutaneous tissues using blunt dissection. The linea alba fascia was incised sharply, the abdomen was entered sharply. The balloon trocar was inserted, and pneumoperitoneum was achieved. Two 8 mm trochars were placed in the right and left lateral abdominal wall under direct laparoscopic visualization. The robot was then brought over the patient and docked appropriately. I then assumed my position at the surgeon's console. Attention was turned to the left groin. The hernia defect was easily identified. A preperitoneal dissection was undertaken using sharp dissection, blunt dissection, and electrocautery. The hernia defect was easily identified. It was found to be in the indirect position. The round ligament was divided, and a lipoma of the cord was reduced back into the abdomen. Next, a 3 DMax large inguinal hernia mesh was placed into the preperitoneal space. It was situated over the defect. It was sutured to the anterior abdominal wall superiorly and medially. This was performed with 2-0 Vicryl suture. After this was completed, the peritoneum was closed using 2-0 V lock suture in simple running fashion. The repair was found to be in good order. After this was completed, the robot was undocked, and I scrubbed back into the case. The trochars were removed. The supraumbilical fascia was closed using 0 Vicryl suture in [id number] fashion. The overlying skin was closed using 4-0 Vicryl Rapide suture in subcuticular fashion. Dressings were placed, and the procedure was concluded. All sponge, instrument, needle counts were correct x2. Condition: Stable. Tonya Rincon PA-C was scrubbed and present the entirety of the procedure. She assisted with all portions of the procedure including placement of the trochars, docking of the robot, exchanging of the robotic instruments, closure of the fascia, and closure of the skin.
== END 2020-06-19 13:10 | disposition home or self-care (01) ==
LOC: OROUT 08:24
PROVIDERS: ATTEND Surgery
DX: K40.90 Unilateral inguinal hernia, without obstruction or gangrene, not specified as recurrent (principal); F17.210 Nicotine dependence, cigarettes, uncomplicated; I73.9 Peripheral vascular disease, unspecified; F31.9 Bipolar disorder, unspecified; G47.00 Insomnia, unspecified; F12.90 Cannabis use, unspecified, uncomplicated; N20.0 Calculus of kidney; Z98.51 Tubal ligation status; Z03.818 Encounter for observation for suspected exposure to other biological agents ruled out
CPT/HCPCS: 49650; 86900; 86901; 36415 ×2; 86850; 84703; 85027; 87635; 80048; 71046; 00830; C1758; C1781; J2250; J3490 ×5; J1100; J3010; J2765; J2710; J0330; J2405; J7060; J7050; J2704; J3370; J1741; C9803; 830; J1885

== ENCOUNTER 2020-06-28 18:04 | Emergency (ER) | payer MEDICAID ==
[2020-06-28] MEDS ORDERED: HYDROCODONE/ACETAMINOPHEN 5-325 MG TABLET PO ONE (19:04)
[2020-06-28] MEDS ORDERED: ONDANSETRON 4 MG TAB.RAPDIS PO ONE (19:05)
--- NOTE | 2020-06-28 19:06 | ER Document Report ---
ED Medical Screen (RME) - General Stated Complaint: POST SURGICAL PAIN Time Seen by Provider: 06/28/20 19:00 Primary Care Provider: RAN MAGANA PA-C [Primary Care Provider] - Follow up as needed Information source: Patient Notes: Patient presents complaining of pain to the left inguinal area. Patient had a laparoscopic hernia repair performed on 06/19/2020. Patient states pain started to flareup yesterday evening. Patient denies any fever or vomiting. Last bowel movement was today. She does complain of nausea. I have greeted and performed a rapid initial assessment of this patient. A comprehensive ED assessment and evaluation of the patient, analysis of test results and completion of the medical decision making process will be conducted by additional ED providers. TRAVEL OUTSIDE OF THE [place] IN LAST 30 DAYS: No - Related Data Allergies/Adverse Reactions: amoxicillin [Amoxicillin] Allergy (Severe, Verified 02/25/20 11:41) rash latex [Latex] Allergy (Severe, Verified 02/13/20 07:20) RASH oxycodone HCl [From Percocet] Allergy (Severe, Verified 02/25/20 11:41) Hives Penicillins Allergy (Severe, Verified 02/25/20 11:41) rash Past Medical History - Past Medical History Cardiac Medical History: Denies: Hx Coronary Artery Disease, Hx Heart Attack, Hx Hypertension Pulmonary Medical History: Denies: Hx Asthma, Hx Bronchitis, Hx COPD, Hx Pneumonia Neurological Medical History: Denies: Hx Cerebrovascular Accident, Hx Seizures Endocrine Medical History: Reports: Hx Diabetes Mellitus Type 2 - Gestional. Denies: Hx Hyperthyroidism, Hx Hypothyroidism Renal/ Medical History: Denies: Hx Ovarian Cysts, Hx Peritoneal Dialysis, Hx Pelvic Inflammatory Disease Malignancy Medical History: Denies: Hx Breast Cancer, Hx Cervical Cancer, Hx Ovarian Cancer GI Medical History: Reports: Hx Gastroesophageal Reflux Disease. Denies: Hx Hiatal Hernia, Hx Ulcer Musculoskeltal Medical History: Denies Hx Arthritis Psychiatric Medical History: Reports: Hx Anxiety, Hx Bipolar Disorder, Hx Post Traumatic Stress Disorder Denies: Hx Depression, Hx Schizophrenia Infectious Medical History: Denies: Hx HIV Past Surgical History: Reports: Hx Section, Hx Tubal Ligation - Immunizations Hx Diphtheria, Pertussis, Tetanus Vaccination: Yes - received during Physical Exam - General General appearance: Alert Notes: Left inguinal tenderness, patient guards with movement Doctor's Discharge - Discharge Referrals: RAN MAGANA PA-C [Primary Care Provider] - Follow up as needed
[2020-06-28 19:38] LABS: ABSOLUTE BASOPHILS # (AUTO) 0.1 10^3/uL (0.0-0.2); ABSOLUTE EOSINOPHILS # (AUTO) 0.2 10^3/uL (0.0-0.6); ABSOLUTE LYMPHOCYTES (AUTO) 2.6 10^3/uL (0.5-4.7); ABSOLUTE MONOCYTES (AUTO) 0.5 10^3/uL (0.1-1.4); ABSOLUTE NEUT (AUTO) 5.5 10^3/uL (1.7-8.2); BASOPHILS % (AUTO) 0.8 % (0-2); EOSINOPHILS % (AUTO) 1.9 % (0-6); HEMATOCRIT 40.8 % (36.0-47.0); HEMOGLOBIN 14.2 g/dL (12.0-15.5); LYMPHOCYTES % (AUTO) 29.1 % (13-45); MEAN CORPUSCULAR HEMOGLOBIN 30.8 pg (27.0-33.4); MEAN CORPUSCULAR HGB CONC 34.8 g/dL (32.0-36.0); MEAN CORPUSCULAR VOLUME 89 fl (80-97); PLATELET COUNT 284 10^3/uL (150-450); RED BLOOD COUNT 4.61 10^6/uL (3.72-5.28); RED CELL DISTRIBUTION WIDTH 14.6 % (11.5-14.0); SEGMENTED NEUTROPHILS % (AUTO) 62.2 % (42-78); TOTAL CELLS COUNTED % (AUTO) 100 %; WHITE BLOOD COUNT 8.8 10^3/uL (4.0-10.5)
[2020-06-28 19:41] LABS: AMORPHOUS SEDIMENT,URINE TRACE /HPF; APPEARANCE,URINE CLOUDY; BILIRUBIN,URINE NEGATIVE (NEGATIVE); COLOR,URINE AMBER; GLUCOSE, URINE NEGATIVE (NEGATIVE); KETONES,URINE NEGATIVE (NEGATIVE); LEUKOCYTE ESTERASE,URINE SMALL (NEGATIVE); NITRITE,URINE NEGATIVE (NEGATIVE); PROTEIN,URINE 100 mg/dL (NEGATIVE); URINE SPECIFIC GRAVITY 1.018; UROBILINOGEN,URINE NEGATIVE mg/dL (<2.0)
[2020-06-28 19:55] LABS: ALBUMIN 4.2 g/dL (3.5-5.0); ALKALINE PHOSPHATASE 103 U/L (38-126); ANION GAP 8 (5-19); ASPARTATE AMINO TRANSFERASE 43 U/L (14-36); BILIRUBIN,DIRECT 0.3 mg/dL (0.0-0.4); BILIRUBIN,TOTAL 0.3 mg/dL (0.2-1.3); BLOOD UREA NITROGEN 9 mg/dL (7-20); CALCIUM 9.6 mg/dL (8.4-10.2); CARBON DIOXIDE 24 mmol/L (22-30); CHLORIDE 107 mmol/L (98-107); GLUCOSE 162 mg/dL (75-110); POTASSIUM 3.9 mmol/L (3.6-5.0); TOTAL PROTEIN 7.1 g/dL (6.3-8.2)
[2020-06-28] MEDS ORDERED: ONDANSETRON HCL INJ/PF 4 MG/2 ML SDV IV ONE (23:06)
[2020-06-28] MEDS ORDERED: MORPHINE SULFATE 10 MG/ML INJ IV ONE (23:07)
--- NOTE | 2020-06-29 00:23 | RADIOLOGY REPORT (SQ) ---
CT ABDOMEN PELVIS WITH IV CONTRAST HISTORY: Left lower quadrant pain. Postop inguinal hernia. COMPARISON: 01/11/2020 TECHNIQUE: CT scan of the abdomen and pelvis was performed with IV contrast. This exam was performed according to our departmental dose-optimization program, which includes automated exposure control, adjustment of the mA and/or kV according to patient size and/or use of iterative reconstruction technique. FINDINGS: Mild scarring at the lung bases but without pleural or pericardial effusions. Liver, gallbladder, spleen, pancreas, and adrenal glands are normal. There is a stable 1.5 cm stone in the left renal pelvis but without hydronephrosis. There is mild inflammation of the left renal pelvis, which was also present on prior study and likely chronic. There are also additional tiny nonobstructing stones in both kidneys. There is a 1.5 cm right ovarian cyst. Bilateral tubal ligation clips are seen. The stomach and duodenum are unremarkable. No small bowel obstruction. The appendix is normal. No evidence of acute diverticulitis. No intraperitoneal adenopathy or free air is identified. There is a 7.8 x 2.3 cm fluid collection in the left lower quadrant just anterior and lateral to the urinary bladder. The aorta is normal in caliber. No acute bony findings are evident. IMPRESSION: Approximately 8 cm focal fluid collection in the left lower quadrant, which may represent postoperative seroma.
--- NOTE | 2020-06-29 01:17 | ER Document Report ---
ED General - General Chief Complaint: Post Surgical Pain Stated Complaint: POST SURGICAL PAIN Time Seen by Provider: 06/28/20 19:00 Primary Care Provider: RAN MAGANA PA-C [Primary Care Provider] - Follow up in 1 week JULIETH ABBOTT MD [ACTIVE STAFF] - Follow up in 3-5 days Notes: 40-year-old female with DMII approximately 10 days postop from left inguinal hernia repair presents with left lower quadrant pain for approximately 2 days. Pain started gradually, does not recall any trauma. patient says her pain was improving but then felt worse yesterday and has been constant since. Patient has otherwise not had any symptoms, has been doing her normal activities, denies any vomiting, fever, obstipation, constipation, diarrhea, melena, bright red blood per rectum, urinary symptoms, vaginal symptoms TRAVEL OUTSIDE OF THE [place] IN LAST 30 DAYS: No - Related Data Allergies/Adverse Reactions: amoxicillin [Amoxicillin] Allergy (Severe, Verified 06/28/20 23:37) rash latex [Latex] Allergy (Severe, Verified 06/28/20 23:37) RASH oxycodone HCl [From Percocet] Allergy (Severe, Verified 06/28/20 23:37) Hives Penicillins Allergy (Severe, Verified 06/28/20 23:37) rash Past Medical History - General Information source: Patient - Social History Smoking Status: Current Every Day Smoker Chew tobacco use (# tins/day): No Frequency of alcohol use: None Drug Abuse: Marijuana Family History: Reviewed & Not Pertinent Patient has homicidal ideation: No - Past Medical History Cardiac Medical History: Denies: Hx Coronary Artery Disease, Hx Heart Attack, Hx Hypertension Pulmonary Medical History: Denies: Hx Asthma, Hx Bronchitis, Hx COPD, Hx Pneumonia Neurological Medical History: Denies: Hx Cerebrovascular Accident, Hx Seizures Endocrine Medical History: Reports: Hx Diabetes Mellitus Type 2 - Gestional. Denies: Hx Hyperthyroidism, Hx Hypothyroidism Renal/ Medical History: Denies: Hx Ovarian Cysts, Hx Peritoneal Dialysis, Hx Pelvic Inflammatory Disease Malignancy Medical History: Denies: Hx Breast Cancer, Hx Cervical Cancer, Hx Ovarian Cancer GI Medical History: Reports: Hx Gastroesophageal Reflux Disease. Denies: Hx Hiatal Hernia, Hx Ulcer Musculoskeletal Medical History: Denies Hx Arthritis Psychiatric Medical History: Reports: Hx Anxiety, Hx Bipolar Disorder, Hx Post Traumatic Stress Disorder Denies: Hx Depression, Hx Schizophrenia Infectious Medical History: Denies: Hx HIV Past Surgical History: Reports: Hx Section, Hx Tubal Ligation - Immunizations Hx Diphtheria, Pertussis, Tetanus Vaccination: Yes - received during Review of Systems - Review of Systems Notes: REVIEW OF SYSTEMS: CONSTITUTIONAL : Denies fever, chills, or sweats. EENT: Denies recent cold/sinus symptoms, denies throat pain CARDIOVASCULAR: Denies chest pain, [place] RESPIRATORY: Denies cough, denies shortness of breath. GASTROINTESTINAL: + abdominal pain, -vomiting. GENITOURINARY: Denies difficulty urinating, painful urination. FEMALE GENITOURINARY: Denies abnormal vaginal bleeding, vaginal discharge. MUSCULOSKELETAL: Denies neck pain, back pain. SKIN: Denies rash or skin lesions. HEMATOLOGIC : Denies easy bruising or bleeding. LYMPHATIC: Denies swollen, enlarged glands. NEUROLOGICAL: Denies headache, denies change in gait. PSYCHIATRIC: Denies anxiety or stress or depression. Physical Exam - Vital signs Vitals: Temp Pulse Resp BP Pulse Ox 98.4 F 70 20 103/57 L 98 06/28/20 23:18 06/28/20 23:18 06/28/20 23:18 06/28/20 23:18 06/28/20 23:18 - Notes Notes: PHYSICAL EXAMINATION: GENERAL: Well-appearing, well-nourished and in no acute distress. HEAD: Atraumatic, normocephalic. EYES: Pupils equal round and appropriate constriction, sclera anicteric, conjunctiva are normal. ENT: nares patent, moist mucous membranes. NECK: Normal range of motion, supple without lymphadenopathy LUNGS: Breath sounds clear to auscultation bilaterally and equal. No wheezes rales or rhonchi. HEART: Regular rate and rhythm without murmurs ABDOMEN: Soft, nondistended, healing laparoscopic surgical incisions without any discharge tenderness abnormal redness, mild left lower quadrant tenderness on deep palpation without any rebound or guarding, no masses, no CVA tenderness EXTREMITIES: Normal range of motion, no pitting or edema. No cyanosis. NEUROLOGICAL: Awake, alert, conversing appropriately, moves all extremities spontaneously. PSYCH: Normal mood, normal affect. SKIN: Warm, Dry, normal turgor, no rashes or lesions noted. Course - Re-evaluation Re-evalutation: 10/26/20 01:15 Patient very well-appearing, normal vital signs, no systemic symptoms, no signs of infection, no symptoms of obstruction and patient is passing urine and stool and gas normally. No SU[employer]OR [employer] or urinary symptoms. Likely normal postop pain now not taking opioids to control pain, but rule out abscess, mesh migration, return of hernia, renal colic. Discussed with Dr. Abbott. Obtain CT which showed several chronic unchanged findings and you show mild left lower quadrant but no evidence of infection. No mesh on CT. Discussed findings with Dr. Abbott who would like patient to follow-up with him in the office as scheduled. Pain is adequately controlled. Patient ready for discharge, given extensive return to ED precautions which she demonstrated understanding of. - Vital Signs Vital signs: Temp Pulse Resp BP Pulse Ox 98.4 F 70 20 103/57 L 98 06/28/20 23:18 06/28/20 23:18 06/28/20 23:18 06/28/20 23:18 06/28/20 23:18 - Laboratory Result Diagrams: 06/28/20 19:18 06/28/20 19:18 Laboratory results interpreted by me: 06/28/20 06/28/20 06/28/20 19:18 19:18 19:18 RDW 14.6 H Glucose 162 H AST 43 H ALT 44 H Urine Protein 100 H Urine Blood MODERATE H Ur Leukocyte Esterase SMALL H Discharge - Discharge Clinical Impression: Postoperative pain, Seroma, Hyperglycemia Hematuria Qualifiers: Hematuria type: unspecified type Qualified Code(s): R31.9 - Hematuria, unspecified Disposition: HOME, SELF-CARE Additional Instructions: Your work-up here showed a fluid collection in your abdomen which she will foll ow-up with your surgeon as scheduled in the office. You should you attend your follow-up appointment with surgeon. You also had several incidental findings which are on the results printed out for you and you can discuss this with your primary doctor. You had blood in your urine but no signs of infection and you should discuss this with your primary doctor. If you have any worsening pain, vomiting, inability to pass gas or stool, fever of 100.4 or higher, inability to urinate, or any other worsening or alarming symptoms return to the emergency department immediately. Prescriptions: Hydrocodone/Acetaminophen [Hydrocodone-Acetamin 5-300 mg] 1 each PO Q6HP PRN #5 tablet PRN Reason: Severe Pain Referrals: BUNDLE,RAN, PA-C [Primary Care Provider] - Follow up in 1 week JULIETH ABBOTT MD [ACTIVE STAFF] - Follow up in 3-5 days
[2020-06-29 01:53] VITALS: BP 105/58
[2020-06-29] MEDS ORDERED: HYDROCODONE/ACETAMINOPHEN 5-325 MG (6 TAB/ER DISP) PO PRN ×2 (13:49→15:13)
== END 2020-06-29 01:55 | disposition home or self-care (01) ==
LOC: ER 18:04
DX: R10.32 Left lower quadrant pain (principal); R10.814 Left lower quadrant abdominal tenderness; G89.18 Other acute postprocedural pain; T14.8XXA Other injury of unspecified body region, initial encounter; X58.XXXA Exposure to other specified factors, initial encounter; R31.9 Hematuria, unspecified; R73.9 Hyperglycemia, unspecified; F17.200 Nicotine dependence, unspecified, uncomplicated; F12.10 Cannabis abuse, uncomplicated; Z88.0 Allergy status to penicillin; Z91.040 Latex allergy status; Z88.6 Allergy status to analgesic agent; Z88.5 Allergy status to narcotic agent
CPT/HCPCS: 99285; 96374; 96375; 36415; 84703; 85025; 80053; 81001; 74177; S0119; J2270; J2405